=== PATIENT | female | born 1950 | race Caucasian/White ===

== ENCOUNTER 2020-02-12 07:52 | Outpatient (REF) | payer MEDICARE, SELFPAY ==
[2020-02-12 11:56] LABS: Vitamin D 25-OH Total 54.8 ng/mL (>30)
[2020-02-12 11:58] LABS: Alanine Aminotransferase 26 U/L (0-31); Anion Gap 12 (12-20); Aspartate Amino Transferase 22 U/L (5-31); Blood Urea Nitrogen 20 mg/dL (9-16); Calcium 9.2 mg/dL (8.4-10.2); Carbon Dioxide 36 mmol/L (22-29); Chloride 99 mmol/L (96-108); Cholesterol 217 mg/dL; Estimated Glomerular Filt Rate > 60; Glucose Fasting 93 mg/dL (60-99); Potassium 3.5 mmol/l (3.3-5.1); Sodium 143 mmol/L (135-145); Triglycerides 106 mg/dL
[2020-02-12 12:13] LABS: HDL Cholesterol 81 mg/dL; LDL Cholesterol Calculated 115 mg/dl
== END 2020-02-12 07:53 | disposition home or self-care (01) ==
LOC: HO.HMGCLDS 07:52
PROVIDERS: PCP Internal Medicine; Visit Provider Internal Medicine
DX: M81.0 Age-related osteoporosis without current pathological fracture (principal); Z78.0 Asymptomatic menopausal state; I10 Essential (primary) hypertension; N20.0 Calculus of kidney
CPT/HCPCS: 80048; 80061; 82306; 84450; 84460

== ENCOUNTER 2020-05-04 11:19 | Outpatient (REF) | payer MEDICARE, SELFPAY ==
--- NOTE | ~2020-05-04 | US_ITS ---
EXAMINATION: US RETROPERITONEAL COMPLETE (RENAL) CLINICAL INFORMATION: Renal calculus. COMPARISON: Ultrasound kidneys and bladder 03/25/2019 and 11/14/2017. CT abdomen and pelvis 01/27/2017. KUB 10/28/2014 and 02/06/2012. TECHNIQUE: Real-time imaging of the kidneys and bladder. FINDINGS: RIGHT KIDNEY: 11.3 x 5.6 x 5.2 cm (SAG x AP x TRV). The kidney is normal in size, contour, and echogenicity. Renal cortical thickness is normal. No renal calculi or hydronephrosis. There is an anechoic cyst midpole with septation measuring 4.5 x 3.2 x 3.9 cm. LEFT KIDNEY: 12.3 x 5.4 x 4.6 cm (SAG x AP x TRV). The kidney is normal in size, contour, and echogenicity. Renal cortical thickness is normal. No hydronephrosis. There is an anechoic cyst in the lower pole measuring 1.6 x 1.1 x 1.4 cm. There is an echogenic shadowing stone in the lower pole measuring 0.6 x 0.2 cm. BLADDER: Well distended and normal. Bilateral ureteral jets are demonstrated. Prevoid bladder volume is 439 mL. Postvoid bladder volume is 101 mL. US/US retroperitoneal comp IMPRESSION: There are bilateral renal cysts. The cyst in the right kidney is complex measuring 4.5 cm. Nonobstructive echogenic stone lower pole left kidney.
== END 2020-05-04 11:20 | disposition home or self-care (01) ==
LOC: HO.US 11:19
PROVIDERS: Visit Provider Urology
DX: N20.0 Calculus of kidney (principal)
CPT/HCPCS: 76770

== ENCOUNTER 2020-05-21 11:38 | Outpatient (REF) | payer MEDICARE, SELFPAY ==
[2020-05-21 14:21] LABS: SARS COV2 PCR INHOUSE NEGATIVE (Negative)
== END 2020-05-21 11:39 | disposition home or self-care (01) ==
LOC: HO.LAB 11:38
PROVIDERS: Visit Provider Internal Medicine
DX: Z20.822 Contact with and (suspected) exposure to COVID-19 (principal)
CPT/HCPCS: C9803; U0003

== ENCOUNTER 2020-06-24 16:15 | Emergency (ER) | payer MEDICARE, SELFPAY ==
[2020-06-24 17:28] VITALS: BP 138/63; PULSE 79; RESP 16; TEMP 36.8; O2SAT 98; BMI 24.1
--- NOTE | 2020-06-24 19:06 | ED.GIBLEED ---
HPI - GI Bleed General Chief complaint: GI Bleed Stated complaint: RECTAL BLEEDING Time Seen by Provider: 06/24/20 19:06 Source: patient Mode of arrival: ambulatory Limitations: no limitations History of Present Illness HPI Narrative: Patient history of internal hemorrhoids was feeling okay earlier all of a sudden noticed cramping pain in the lower abdomen went to the bathroom and moved bowel when she moved the bowel noticed gush of blood bright red from the rectum also complaining of lower abdominal pain patient has history of precancerous adenomatous polyps which were removed last colonoscopy was 5 years ago no history of bleeding in the past MD complaint: gross hematochezia Related Data Home Medications Medication Instructions Recorded Confirmed flu vacc 2020-21(65yr ml IM 02/07/20 02/07/20 up)-MF59C(PF) 60 mcg(15 mcgx4)/0.5 mL IM syringe pneumoc 13-desi conj-dip cr(PF) 0.5 ml IM 02/07/20 02/07/20 mL IM syringe Previous Rx's Medication Instructions Recorded hydrochlorothiazide 12.5 mg capsule 12.5 mg PO QAM #90 cap 02/06/20 Allergies Allergy/AdvReac Type Severity Reaction Status Date / Time azithromycin Allergy Intermediate GI UPSET, Unverified 11/07/19 15:48 [From ZITHROMAX Z-CHRISTI] stomach upset alendronate sodium [Fosamax] AdvReac Unknown nausea Verified 02/07/19 00:00 Review of Systems Review of Systems: Constitutional : No Weight loss, No Fever, No Chills ENT/Mouth : No sore throat, No Rhinorrhea Eyes: No Eye Pain, No Swelling Cardiovascular : No Chest Pain, no palpitations Respiratory : No Cough, No Sputum, no shortness of breath Gastrointestinal : no Nausea, No Vomiting, No Diarrhea, +abdominal Pain, no black stools Genitourinary : No Dysuria, No Urinary Frequency Musculoskeletal : No joint pain, No Myalgias, No Joint Swelling Skin : No Skin Lesions, No rash Neuro : No Weakness, No Numbness, No Dizziness, No Headache Psych : No Anxiety/Panic, No Depression Heme/Lymph: No Bruising, No Lymphadenopathy Endocrine : No Polyuria, No Polydipsia All other systems reviewed and are negative PMFSH Past Medical History Medical History Menopause Nephrolithiasis Osteoporosis of multiple sites Renal leak of calcium Surgical History Hx of colonoscopy Hx of dilation and curettage Family History Family History Father No problems noted. Mother No problems noted. Sister HX: breast cancer Maternal Grandmother No problems noted. Maternal Grandfather No problems noted. Paternal Grandmother No problems noted. Paternal Grandfather No problems noted. Maternal Uncle No problems noted. Paternal Uncle No problems noted. Social History Social History Alcohol intake: current Smoking Status: Never smoker Advance Directives: No Advance Directives Information Provided: Yes Physical Exam Vital Signs: Vital Signs: Last Vital Signs Temp 98.2 F 06/24/20 17:28 Pulse 105 H 06/24/20 20:51 Resp 16 06/24/20 19:52 BP 152/69 H 06/24/20 20:51 Pulse Ox 96 06/24/20 19:52 Body Mass Index 24.1 Appearance: Alert. Oriented X3. No acute distress. Eyes: PERRLA, No Nystagmus ENT: Pharynx normal. Oral Mucosa moist Neck: Normal inspection. Neck supple. CVS: Normal heart rate and rhythm. Pulses normal. Respiratory: No respiratory distress. Equal air entry bilateral, no wheezing/rales/rhonchi Abdomen: Soft and nontender. Bowel sounds are present, no mass palpable, no CVA tenderness Rectal: Small amount of maroon-colored blood on the finger Skin: Skin warm and dry. Normal skin color. Normal skin turgor. Extremities: No lower extremity edema. No calf tenderness Neuro: Oriented X 3. No motor deficit. No sensory deficit.No cerebellar signs , cranial nerves II-XII intact MDM - GI Bleed MDM Narrative Medical decision making narrative: Patient with minor lower GI bleed no more bleeding in the ER orthostatics normal last colonoscopy normal except for precancer polyps which were removed. Case discussed Dr. Ignacio patient with stable H&H will discharge patient home for now advised to follow with sales office assistant for near future colonoscopy patient labs showed potassium of 3 etiology not very clear will give p.o. potassium Differential Diagnosis Differential diagnosis: Likely hematochezia Lab Data Attestation: I reviewed the patient's lab results. Result diagrams: 06/24/20 19:52 06/24/20 19:52 Labs: Lab Results 06/24/20 06/24/20 06/24/20 Range/Units 19:52 19:52 19:52 WBC 10.6 (4.8-10.8) X10*3/uL RBC 4.77 (4.20-5.50) X10*6/uL Hgb 15.3 (12.0-16.0) g/dl Hct 43.4 (37-47) % MCV 91.0 (80-98) fL MCH 32.1 (27.0-33.0) pg MCHC 35.3 H (31.0-35.0) g/dl RDW 12.4 (11.0-16.0) % Plt Count 254 (160-400) X10*3/uL MPV 10.1 (9.4-12.3) fL Immature Gran % (Auto) 0.3 (0.0-0.4) % Neut % (Auto) 82.7 H (45-73) % Lymph % (Auto) 11.3 L (20-40) % Citrus % (Auto) 5.2 (2-11) % Eos % (Auto) 0.1 (0-4) % Baso % (Auto) 0.4 (0-2) % Lymph # (Auto) 1.2 (1.2-4.9) X10*3/uL Citrus # (Auto) 0.6 (0.1-1.2) X10*3/uL Eos # (Auto) 0.0 (0.0-0.4) X10*3/uL Baso # (Auto) 0.0 (0.0-0.2) X10*3/uL Abs Immat Gran (auto) 0.03 (0.00-0.03) X10*3/uL Absolute Neuts (auto) 8.8 H (2.0-8.3) X10*3/uL Absolute Nucleated RBC 0.000 (0.0-0.012) X10*3/uL Nucleated RBC % (auto) 0.0 (0.0-0.2) /100WBC PT 11.5 (10.8-13.0) SEC INR 1.0 (0.9-1.1) APTT 36.6 (24.1-38.0) SEC Sodium 141 (135-145) mmol/L Potassium 3.0 L (3.3-5.1) mmol/L Chloride 97 (96-108) mmol/L Carbon Dioxide 36 H (22-29) mmol/L Anion Gap 11 L (12-20) BUN 23 H (9-16) mg/dL Creatinine 0.67 (0.5-1.4) mg/dL Estim Creat Clear Calc 64.0 Estimated GFR > 60 Random Glucose 112 (60-115) mg/dL Calcium 9.7 (8.4-10.2) mg/dL Total Bilirubin 0.6 (0.0-1.0) mg/dL Direct Bilirubin 0.2 (0.0-0.5) mg/dL AST 21 (5-31) U/L ALT 27 (0-31) U/L Alkaline Phosphatase 115 (39-117) U/L Total Protein 6.5 (6.5-8.0) g/dL Albumin 4.1 (3.5-5.0) g/dL Lipase 7 L (8-78) U/L Stool Occult Blood (NEGATIVE) Blood Type Antibody Screen 06/24/20 06/24/20 Range/Units 19:54 20:35 WBC (4.8-10.8) X10*3/uL RBC (4.20-5.50) X10*6/uL Hgb (12.0-16.0) g/dl Hct (37-47) % MCV (80-98) fL MCH (27.0-33.0) pg MCHC (31.0-35.0) g/dl RDW (11.0-16.0) % Plt Count (160-400) X10*3/uL MPV (9.4-12.3) fL Immature Gran % (Auto) (0.0-0.4) % Neut % (Auto) (45-73) % Lymph % (Auto) (20-40) % Citrus % (Auto) (2-11) % Eos % (Auto) (0-4) % Baso % (Auto) (0-2) % Lymph # (Auto) (1.2-4.9) X10*3/uL Citrus # (Auto) (0.1-1.2) X10*3/uL Eos # (Auto) (0.0-0.4) X10*3/uL Baso # (Auto) (0.0-0.2) X10*3/uL Abs Immat Gran (auto) (0.00-0.03) X10*3/uL Absolute Neuts (auto) (2.0-8.3) X10*3/uL Absolute Nucleated RBC (0.0-0.012) X10*3/uL Nucleated RBC % (auto) (0.0-0.2) /100WBC PT (10.8-13.0) SEC INR (0.9-1.1) APTT (24.1-38.0) SEC Sodium (135-145) mmol/L Potassium (3.3-5.1) mmol/L Chloride (96-108) mmol/L Carbon Dioxide (22-29) mmol/L Anion Gap (12-20) BUN (9-16) mg/dL Creatinine (0.5-1.4) mg/dL Estim Creat Clear Calc Estimated GFR Random Glucose (60-115) mg/dL Calcium (8.4-10.2) mg/dL Total Bilirubin (0.0-1.0) mg/dL Direct Bilirubin (0.0-0.5) mg/dL AST (5-31) U/L ALT (0-31) U/L Alkaline Phosphatase (39-117) U/L Total Protein (6.5-8.0) g/dL Albumin (3.5-5.0) g/dL Lipase (8-78) U/L Stool Occult Blood POSITIVE (NEGATIVE) Blood Type O Positive Antibody Screen NEGATIVE Discharge Plan Discharge Clinical Impression: Lower gastrointestinal hemorrhage, Acute hypokalemia Patient Disposition: Home, Self-Care Instructions: Rectal Bleeding (ED) Additional Instructions: Report to the ER/sales office assistant if bleeding continues, avoid constipation Follow-up with sales office assistant for re-evaluation in next 2 3 days Prescriptions: No Action hydrochlorothiazide 12.5 mg capsule 12.5 mg PO QAM Qty: 90 RF: 1 Fluad Quad 2020-(65y up)(PF) 60 mcg (15 mcg x 4)/0.5 mL syringe IM RF: 0 Prevnar 13 (PF) 0.5 mL syringe IM RF: 0 Referrals: Prasanth Ignacio [Physician] - 1 week Interventions: ED Discharge Assessment Last Done: 06/24/20 21:29 Discharge Date/Time: 06/24/20 21:31
[2020-06-24 19:52] VITALS: BP 152/64; PULSE 89; RESP 16; O2SAT 96
[2020-06-24 20:01] LABS: MANUAL DIFF FLAG NO
[2020-06-24 20:03] LABS: Basophils Percent Auto 0.4 % (0-2); Eosinophils Percent Auto 0.1 % (0-4); Hematocrit 43.4 % (37-47); Hemoglobin 15.3 g/dl (12.0-16.0); Imm Gran Abs Auto 0.03 X10*3/uL (0.00-0.03); Imm Gran Pct Auto 0.3 % (0.0-0.4); Lymphocytes Absolute Auto 1.2 X10*3/uL (1.2-4.9); Lymphocytes Percent Auto 11.3 % (20-40); Mean Corpuscular HGB Conc 35.3 g/dl (31.0-35.0); Mean Corpuscular Hemoglobin 32.1 pg (27.0-33.0); Mean Platelet Volume 10.1 fL (9.4-12.3); Monocytes Absolute Auto 0.6 X10*3/uL (0.1-1.2); Monocytes Percent Auto 5.2 % (2-11); Neutrophils Absolute Auto 8.8 X10*3/uL (2.0-8.3); Neutrophils Percent Auto 82.7 % (45-73); Platelet Count 254 X10*3/uL (160-400); Red Blood Count 4.77 X10*6/uL (4.20-5.50); Red Cell Distribution Width 12.4 % (11.0-16.0); White Blood Count 10.6 X10*3/uL (4.8-10.8)
[2020-06-24 20:14] LABS: Prothrombin Time 11.5 SEC (10.8-13.0)
[2020-06-24 20:16] LABS: Partial Thromboplastin Time 36.6 SEC (24.1-38.0)
[2020-06-24 20:25] LABS: Alanine Aminotransferase 27 U/L (0-31); Albumin Level 4.1 g/dL (3.5-5.0); Alkaline Phosphatase 115 U/L (39-117); Anion Gap 11 (12-20); Aspartate Amino Transferase 21 U/L (5-31); Bilirubin Direct 0.2 mg/dL (0.0-0.5); Bilirubin Total 0.6 mg/dL (0.0-1.0); Blood Urea Nitrogen 23 mg/dL (9-16); Calcium 9.7 mg/dL (8.4-10.2); Carbon Dioxide 36 mmol/L (22-29); Chloride 97 mmol/L (96-108); Estimated Glomerular Filt Rate > 60; Glucose Random 112 mg/dL (60-115); Lipase 7 U/L (8-78); Sodium 141 mmol/L (135-145); Total Protein 6.5 g/dL (6.5-8.0)
[2020-06-24 20:47] LABS: OBS Int Ctl Valid YES; OBS1 POSITIVE (NEGATIVE)
[2020-06-24 20:49] VITALS: BP 164/65; PULSE 94
[2020-06-24 20:51] VITALS: BP 129/76; BP 152/69; PULSE 103; PULSE 105
[2020-06-24] MEDS: Potassium Bicarbonate/Cit AC 25 MEQ TABLET.EFF PO (21:00)
== END 2020-06-24 21:31 | disposition home or self-care (01) ==
PROVIDERS: Emergency Provider Internal Medicine; PCP Internal Medicine
DX: K92.2 Gastrointestinal hemorrhage, unspecified (principal); E87.6 Hypokalemia; Z79.899 Other long term (current) drug therapy
CPT/HCPCS: 36415; 80048; 80076; 82272; 83690; 85025; 85610; 85730; 86850; 86900; 86901; 99284

== ENCOUNTER 2020-06-29 09:26 | Day surgery (SDC) | payer MEDICARE, SELFPAY ==
--- NOTE | 2020-06-26 08:27 | HO.ANESPROP2 ---
Documented by User: Maggie Sullivanney 06/26/20 08:36 HPI - Anesthesia Eval Consult details Narrative: 70yo F for Colonoscopy Low K in ED 06/24/20. PO K given. Redraw labs DOS. PMFSH Active Problems Active Problems: All Active Problems (Updated 06/25/20 @ 09:37 by Alee Olivia, RN) Rectal hemorrhage (Acute) Renal leak of calcium (Acute) Menopause (Acute) Encounter for general adult medical examination with abnormal findings (Acute) Nephrolithiasis (Acute) Osteoporosis of multiple sites (Acute) Past Medical History Medical History Menopause Nephrolithiasis Osteoporosis of multiple sites Renal leak of calcium Family History Family History Father No problems noted. Mother No problems noted. Sister HX: breast cancer Maternal Grandmother No problems noted. Maternal Grandfather No problems noted. Paternal Grandmother No problems noted. Paternal Grandfather No problems noted. Maternal Uncle No problems noted. Paternal Uncle No problems noted. Surgical History Surgical History Hx of colonoscopy Hx of dilation and curettage Social History Social History Alcohol intake: current Alcohol intake frequency: holidays/special occasions only Smoking Status: Never smoker Second Hand Smoke Exposure: Yes Use of substances other than those prescribed or required for medical reasons: No Are you DNR?: No Advance Directives: No Advance Directives Information Provided: Yes Patient : No Meds Allergies Allergy/AdvReac Type Severity Reaction Status Date / Time azithromycin Allergy Intermediate GI UPSET, Unverified 11/07/19 15:48 [From ZITHROMAX Z-CHRISTI] stomach upset alendronate sodium [Fosamax] AdvReac Unknown nausea Verified 02/07/19 00:00 Home Medications Medication Instructions Recorded Confirmed Last Taken Type flu vacc (65yr ml IM 02/07/20 02/07/20 Unknown History up)-MF59C(PF) 60 mcg(15 mcgx4)/0.5 mL IM syringe pneumoc 13-desi conj-dip cr(PF) 0.5 ml IM 02/07/20 02/07/20 Unknown History mL IM syringe Exam Exam Date and Time: June 26, 2020 0803 Pertinent Lab Results Pertinent Lab Results: Laboratory Tests 06/24/20 19:52 WBC 10.6 Hgb 15.3 Hct 43.4 Plt Count 254 Assessment and Plan Assessment Anesthesia Assessment: Chart Reviewed Documented by User: Sofia Truong 06/29/20 10:16 PMFSH Past Medical History Medical History Menopause Nephrolithiasis Osteoporosis of multiple sites Renal leak of calcium Family History Family History Father No problems noted. Mother No problems noted. Sister HX: breast cancer Maternal Grandmother No problems noted. Maternal Grandfather No problems noted. Paternal Grandmother No problems noted. Paternal Grandfather No problems noted. Maternal Uncle No problems noted. Paternal Uncle No problems noted. Surgical History Surgical History Hx of colonoscopy Hx of dilation and curettage Social History Social History Alcohol intake: current Alcohol intake frequency: holidays/special occasions only Smoking Status: Never smoker Second Hand Smoke Exposure: Yes Use of substances other than those prescribed or required for medical reasons: No Are you DNR?: No Advance Directives: No Advance Directives Information Provided: Yes Patient : No Meds Allergies Allergy/AdvReac Type Severity Reaction Status Date / Time azithromycin Allergy Intermediate GI UPSET, Unverified 11/07/19 15:48 [From ZITHROMAX Z-CHRISTI] stomach upset alendronate sodium [Fosamax] AdvReac Unknown nausea Verified 02/07/19 00:00 Home Medications Medication Instructions Recorded Confirmed Last Taken Type flu vacc (65yr ml IM 02/07/20 02/07/20 Unknown History up)-MF59C(PF) 60 mcg(15 mcgx4)/0.5 mL IM syringe pneumoc 13-desi conj-dip cr(PF) 0.5 ml IM 02/07/20 02/07/20 Unknown History mL IM syringe Exam Airway Mallampati Class: II TM Dist: >3cm Neck ROM: Full Loose/Missing/Broken Teeth: No Heart: RRR Lungs: CTA Assessment and Plan Assessment Anesthesia Assessment: Anesthesia Plan Discussed and Chart Reviewed Final Anesthetic Review NPO: Yes ASA Class: II Final Preanesthetic Review: Meds/Allgs Chart Reviewed, Consent Obtained/Reviewed and Anes Risks/Benef Reviewed Patient Risk: Low Procedure Risk: Low Anesthetic Plan Anesthetic Plan: MAC: Disposition: Standard PACU
[2020-06-29 09:57] VITALS: BMI 23.3
[2020-06-29 10:04] VITALS: BP 152/67; PULSE 90; RESP 16; TEMP 36.4; O2SAT 96
[2020-06-29 10:33] LABS: Anion Gap 13 (12-20); Carbon Dioxide 34 mmol/L (22-29); Chloride 102 mmol/L (96-108); Potassium 3.5 mmol/L (3.3-5.1); Sodium 145 mmol/L (135-145)
[2020-06-29 11:05] VITALS: BP 117/53; PULSE 83; RESP 18; TEMP 36.5; O2SAT 100
--- NOTE | 2020-06-29 11:09 | PM.OP ---
Brief Operative Note Date of Service: 06/29/20 Pre-op diagnosis: Rectal bleed, History of tubular adenomas Post-op diagnosis: other (Colon polyp, ? Resolving colitis, Diverticulosis) Procedure: Colonoscopy to the cecum and TI with biopsies, and biopsy/removal of polyp Surgeon: Prasanth Ignacio Anesthesia: MAC Was an Clinical Assoc used for this Procedure?: No Estimated blood loss (mL): 3.0 Pathology: other (A. Ascending colon polyp B. Colon at 50cm) Condition: stable Disposition: PACU
[2020-06-29 11:20] VITALS: BP 145/67; PULSE 75; RESP 18; TEMP 36.7; O2SAT 100
[2020-06-29 11:35] VITALS: BP 138/63; PULSE 75; RESP 20; O2SAT 100
--- NOTE | 2020-06-29 13:25 | OP_ITS ---
SURGEON: Prasanth Ignacio MD INDICATIONS: The patient presents for evaluation of hematochezia and personal history of tubular adenoma of the colon. Full consent has been obtained from her for this, including risks of bleeding and perforation. PREOPERATIVE DIAGNOSIS: POSTOPERATIVE DIAGNOSIS: PROCEDURE PERFORMED: Colonoscopy to cecum and terminal ileum with biopsies, and biopsy and removal of polyp. ESTIMATED BLOOD LOSS: COMPLICATIONS: ANESTHESIA: Monitored anesthesia care. ASSISTANTS: SPECIMENS: PREOPERATIVE DIAGNOSES: Hematochezia, personal history of tubular adenoma of the colon, family history of colon cancer. POSTOPERATIVE DIAGNOSES: Hematochezia, personal history of tubular adenoma of the colon, family history of colon cancer, small colon polyp, question of resolving colitis, diverticulosis, and internal hemorrhoids. DESCRIPTION OF PROCEDURE: The patient was placed in the left lateral decubitus position. The digital rectal exam revealed no abnormalities. The [employer] video pediatric colonoscope was entered into the rectum and advanced easily to the cecum. Once in the cecum, I did identify normal-appearing cecal pouch with appendiceal orifice and a normal-appearing ileocecal valve. The terminal ileum was cannulated and appeared normal. The scope was withdrawn back in the colon. The entire cecum and ileocecal valve appeared normal. The scope was slowly withdrawn assessing all mucosal surfaces carefully. Preparation was excellent. In the ascending colon, was a flat approximately 5 mm polyp, which was biopsied and completely removed with cold biopsy forceps. I did not visualize any sign of other polyps nor angiodysplasia. Between 50 and 60 cm, was what appeared to be an area of some resolving colitis with some erythema, edema, and some mild friability. There were no erosions or ulceration. Biopsies were obtained. There was a moderate amount of sigmoid diverticulosis. I did not visualize any sign of other areas of colitis. In the rectum, scope was retroflexed visualizing internal hemorrhoids, but no other pathology. The rectal mucosa appeared normal. The scope was straightened out and withdrawn from the patient. She tolerated the procedure well and was returned to the recovery area in stable condition. IMPRESSION: 1. Small colon polyp, status post biopsy and removal. 2. Question of resolving colitis. 3. Diverticulosis. 4. Internal hemorrhoids. PLAN: The results of the biopsy will be checked. I would recommend a repeat colonoscopy in 5 years for further screening given the previous history of tubular adenomas. In regard to the recent bleeding, this seems to have subsided as she has had no further bleeding including with her bowel prep last night. Even if the biopsies do show some resolving colitis, I would not treat that and this may very well have represented a transient episode of ischemic colitis given the location and her initial presentation. She was advised not to use any aspirin and NSAIDs for 1 week. MD PABLO Patel/PROSPER / [phone]
== END 2020-06-29 12:04 | disposition home or self-care (01) ==
PROVIDERS: Anesthesiology; PCP Internal Medicine; Visit Provider Internal Medicine
PROC: 0DJD8ZZ Inspection of Lower Intestinal Tract, Via Natural or Artificial Opening Endoscopic (ICD-10-PCS; CPT 45378; principal; 2020-06-29 10:30)
DX: K62.5 Hemorrhage of anus and rectum (principal); Z86.010 Personal history of colon polyps; Z80.0 Family history of malignant neoplasm of digestive organs; D12.2 Benign neoplasm of ascending colon; K57.30 Diverticulosis of large intestine without perforation or abscess without bleeding; K64.8 Other hemorrhoids; M81.0 Age-related osteoporosis without current pathological fracture; Z87.442 Personal history of urinary calculi; Z79.899 Other long term (current) drug therapy; Z88.1 Allergy status to other antibiotic agents; Z88.8 Allergy status to other drugs, medicaments and biological substances
CPT/HCPCS: 45380; 36415; 80051; 88305

== ENCOUNTER 2020-09-30 09:01 | Outpatient (REF) | payer MEDICARE, SELFPAY ==
--- NOTE | ~2020-09-30 | MM_ITS ---
EXAMINATION: MM SCREENING DIGITAL BREAST TOMOSYNTHESIS, BILATERAL CLINICAL INFORMATION: Screening. Asymptomatic. The lifetime risk of breast cancer based on the Tyrer-Cuzick Model is 6.4%. COMPARISON: Mammography: August 14, 2019 and studies dating back to February 26, 2013. TECHNIQUE: Digital breast tomosynthesis is performed in both the craniocaudal and mediolateral oblique views along with computer-aided detection (CAD). Synthesized 2D images are generated from the tomosynthesis. Additional left exaggerated craniocaudal view performed. FINDINGS: The breasts are heterogeneously dense, which may obscure small masses (ACR BI-RADS breast composition Category c). There are no significant masses, abnormal calcifications, or other abnormalities. MM/MM tomosynthesis screening BI IMPRESSION: There are no significant changes from prior study. ASSESSMENT: BI-RADS 1: Negative RECOMMENDATION: Routine annual mammography screening. This patient's information was entered into a reminder system with a target due date for their next mammogram.
--- NOTE | ~2020-09-30 | MM_ITS ---
EXAMINATION: BONE DENSITOMETRY CLINICAL INDICATION: Age-related osteoporosis without current pathological fracture. COMPARISON: Previous BD dated 02/23/2018 and baseline BD dated 06/06/2007. TECHNIQUE: Using a [employer] DXA System (software version: 13.1) manufactured by [employer], dual-energy x-ray absorptiometry was performed of the spine and left hip. The images are of good technical quality. Summary results are attached. FINDINGS: AP SPINE L1-L4: Current: BMD 0.941 g/cm2, Z-score -0.1, T-score -2.0, osteopenia, 1.8% increase from previous, 8.1% decrease from baseline (<5% change is not significant). Prior: BMD 0.924 g/cm2. Baseline: BMD 1.024 g/cm2. LEFT FEMUR, NECK: Current: BMD 0.715 g/cm2, Z-score -0.5, T-score -2.3, osteopenia. Prior: BMD 0.681 g/cm2. Baseline: BMD 0.718 g/cm2. LEFT FEMUR, TOTAL: Current: BMD 0.792 g/cm2, Z-score -0.1, T-score -1.7, osteopenia, 1.9% increase from previous, 2.7% decrease from baseline (<5% change is not significant). Prior: BMD 0.777 g/cm2. Baseline: BMD 0.814 g/cm2. IDENTIFIED RISK FACTORS: Osteoporosis, height loss, thiazide, menopause. HISTORY OF FRACTURE: None listed. MEDICATIONS: Vitamin D. MM/XR DEXA axial skeleton IMPRESSION: 1. DIAGNOSIS: Osteopenia based on the lowest T-score value of -2.3 in the femoral neck applying World Health Organization criteria. 2. 10-YEAR FRACTURE RISK PREDICTION, FRAX: Major osteoporotic fracture (clinical spine, forearm, hip or shoulder) 13.7%. Hip fracture 3.3%. 3. Treatment Recommendations: NOF guidelines recommend consideration for treatment in postmenopausal women and men age 50 and older presenting with the following: -A hip or vertebral (clinical or morphometric) fracture. -T-score less than or equal to -2.5 at the femoral neck or spine after appropriate evaluation to exclude secondary causes. -Low bone mass at the hip or spine and a 10-year fracture probability by FRAX of greater than or equal to 3% for hip fracture or greater than or equal to 20% for major osteoporotic fracture based on the [place] adapted WHO algorithm. 4. Other Recommendations: All treatment decisions require clinical judgment and consideration of individual patient factors, including patient preferences, comorbidities, previous drug use, risk factors not captured in the FRAX model (e.g. frailty, falls, vitamin D deficiency, increased bone turnover, interval significant decline in bone density) and possible under or overestimation of fracture risk by FRAX. Additional medical evaluation for secondary cause of low bone mineral density may be appropriate. FUTURE SCAN RECOMMENDATION: People with diagnosed cases of osteoporosis or at high risk for fracture should have regular bone mineral density tests. For patients eligible for Medicare, routine testing is allowed once every 2 years. The testing frequency can be increased to one year for patients who have rapidly progressing disease, those who are receiving or discontinuing medical therapy to restore bone mass, or have additional risk factors.
== END 2020-09-30 09:02 | disposition home or self-care (01) ==
LOC: HO.MAMMO 09:01
PROVIDERS: Visit Provider Internal Medicine
DX: M81.8 Other osteoporosis without current pathological fracture (principal); Z78.0 Asymptomatic menopausal state; Z12.31 Encounter for screening mammogram for malignant neoplasm of breast
CPT/HCPCS: 77063; 77067; 77080

== ENCOUNTER 2021-02-15 08:02 | Outpatient (REF) | payer MEDICARE, SELFPAY ==
[2021-02-15 12:00] LABS: Alanine Aminotransferase 32 U/L (0-31); Anion Gap 12 (12-20); Aspartate Amino Transferase 23 U/L (5-31); Blood Urea Nitrogen 25 mg/dL (9-16); Calcium 9.3 mg/dL (8.4-10.2); Carbon Dioxide 31 mmol/L (22-29); Chloride 105 mmol/L (96-108); Cholesterol 203 mg/dL; Estimated Glomerular Filt Rate > 60; Glucose Fasting 92 mg/dL (60-99); HDL Cholesterol 77 mg/dL; LDL Cholesterol Calculated 110 mg/dl; Sodium 144 mmol/L (135-145); Triglycerides 82 mg/dL
[2021-02-15 12:08] LABS: Vitamin D 25-OH Total 42.7 ng/mL (>30)
== END 2021-02-15 08:03 | disposition home or self-care (01) ==
LOC: HO.HMGCLDS 08:02
PROVIDERS: PCP Internal Medicine; Visit Provider Internal Medicine
DX: Z00.01 Encounter for general adult medical examination with abnormal findings (principal); M85.89 Other specified disorders of bone density and structure, multiple sites; N20.0 Calculus of kidney; Z78.0 Asymptomatic menopausal state
CPT/HCPCS: 36415; 80048; 80061; 82306; 84450; 84460

== ENCOUNTER 2021-05-12 12:48 | Outpatient (REF) | payer MEDICARE, SELFPAY ==
--- NOTE | ~2021-05-12 | US_ITS ---
EXAMINATION: US RETROPERITONEAL COMPLETE (RENAL) CLINICAL INFORMATION: Cyst of kidney. COMPARISON: Ultrasound kidneys and bladder 05/04/2020 and 03/25/2019. CT abdomen and pelvis 01/27/2017. X-ray abdomen KUB 10/28/2014. TECHNIQUE: Real-time imaging of the kidneys and bladder. FINDINGS: RIGHT KIDNEY: 10.9 x 3.9 x 4.6 cm (SAG x AP x TRV). The kidney is normal in size, contour, and echogenicity. Renal cortical thickness is normal. No renal calculi or hydronephrosis. There is an anechoic cyst in the midpole with septations measuring 4.1 x 3.5 x 4.1 cm. LEFT KIDNEY: 12.4 x 4.9 x 5.0 cm (SAG x AP x TRV). The kidney is normal in size, contour, and echogenicity. Renal cortical thickness is normal. No hydronephrosis. There is an anechoic cyst measuring 1.0 x 0.75 x 1.1 cm in the lower pole. There is an echogenic stone in the lower pole measuring 0.43 x 0.24 x 0.39 cm. BLADDER: Well distended and normal. Bilateral ureteral jets are demonstrated. Prevoid bladder volume is 432 mL. Postvoid bladder volume is 28.9 mL. US/US retroperitoneal comp IMPRESSION: Complex cyst midpole right kidney. Simple cyst and an echogenic nonobstructive stone lower pole left kidney. There is no hydronephrosis.
== END 2021-05-12 12:49 | disposition home or self-care (01) ==
LOC: HO.US 12:48
PROVIDERS: Visit Provider Nurse Practitioner Family
DX: N28.1 Cyst of kidney, acquired (principal)
CPT/HCPCS: 76770

== ENCOUNTER 2021-10-04 09:03 | Outpatient (REF) | payer MEDICARE, SELFPAY ==
--- NOTE | ~2021-10-04 | MM_ITS ---
EXAMINATION: MM SCREENING DIGITAL BREAST TOMOSYNTHESIS, BILATERAL CLINICAL INFORMATION: Screening. Asymptomatic. The lifetime risk of breast cancer based on the Tyrer-Cuzick Model is 5%. COMPARISON: Mammography: 09/30/2020, 08/14/2019, 06/08/2018, 05/29/2017 TECHNIQUE: Digital breast tomosynthesis is performed in both the craniocaudal and mediolateral oblique views along with computer-aided detection (CAD). Synthesized 2D images are generated from the tomosynthesis. Additional left CC view is provided FINDINGS: The breasts are heterogeneously dense, which may obscure small masses (ACR BI-RADS breast composition Category c). There are no significant masses, abnormal calcifications, or other abnormalities. Parenchymal pattern is similar to prior studies. There is no developing density or architectural abnormality. There is a biopsy clip marker posterior 11:00 right breast. The axilla and skin contours are unremarkable. No significant changes. MM/MM tomosynthesis screening BI IMPRESSION: No mammographic evidence of malignancy. ASSESSMENT: BI-RADS 1: Negative RECOMMENDATION: Routine annual mammography screening. This patient's information was entered into a reminder system with a target due date for their next mammogram.
== END 2021-10-04 09:04 | disposition home or self-care (01) ==
LOC: HO.MAMMO 09:03
PROVIDERS: Visit Provider Internal Medicine
DX: Z12.31 Encounter for screening mammogram for malignant neoplasm of breast (principal)
CPT/HCPCS: 77063; 77067

== ENCOUNTER 2022-02-07 06:49 | Outpatient (REF) | payer MEDICARE, SELFPAY ==
[2022-02-07 12:20] LABS: Alanine Aminotransferase 29 U/L (0-31); Anion Gap 11 (12-20); Aspartate Amino Transferase 23 U/L (5-31); Blood Urea Nitrogen 15 mg/dL (9-16); Calcium 9.3 mg/dL (8.4-10.2); Carbon Dioxide 35 mmol/L (22-29); Chloride 102 mmol/L (96-108); Cholesterol 218 mg/dL; Estimated Glomerular Filt Rate > 60; Glucose Fasting 100 mg/dL (60-99); HDL Cholesterol 75 mg/dL; LDL Cholesterol Calculated 117 mg/dl; Potassium 3.5 mmol/L (3.3-5.1); Sodium 144 mmol/L (135-145); Triglycerides 133 mg/dL; Vitamin D 25-OH Total 46.3 ng/mL (>30)
== END 2022-02-07 06:50 | disposition home or self-care (01) ==
LOC: HO.HMGCLDS 06:49
PROVIDERS: PCP Internal Medicine; Visit Provider Internal Medicine
DX: Z00.01 Encounter for general adult medical examination with abnormal findings (principal); M85.89 Other specified disorders of bone density and structure, multiple sites; Z78.0 Asymptomatic menopausal state
CPT/HCPCS: 36415; 80048; 80061; 82306; 84450; 84460

== ENCOUNTER 2022-04-26 09:49 | Outpatient (REF) | payer MEDICARE, SELFPAY ==
--- NOTE | ~2022-04-26 | US_ITS ---
EXAMINATION: US THYROID CLINICAL INFORMATION: Other specified disorders of thyroid. COMPARISON: Ultrasound thyroid 04/18/2018. TECHNIQUE: Linear transducer grayscale and color Doppler examination with attention to the region of the thyroid. FINDINGS: SIZE: Measurements of the thyroid lobes and nodules are given in sagittal, anteroposterior and transverse dimensions respectively. Right Thyroid Lobe: 3.7 x 1.2 x 1.3 cm, volume 3.1 mL. Previously 4.4 x 0.9 x 1.6 cm, volume 3.2 mL. Parenchyma: The gland echotexture is heterogeneous. Thyroid vascularity is normal. Left Thyroid Lobe: 4.3 x 1.0 x 1.3 cm, volume 2.9 mL. Previously 5.1 x 1.0 x 1.4 cm, volume 3.7 mL. Parenchyma: The gland echotexture is heterogeneous. Thyroid vascularity is normal. Isthmus: 0.2 cm in maximum AP dimension. Previously 0.2 cm. Estimated total number of nodules greater than or equal to 1 cm: 0. Melter Helper nodules are described as follows: 1. Location: Right mid. Size: 0.3 x 0.3 x 0.3 cm, volume 0.01 mL. Previously: 0.4 x 0.2 x 0.3 cm, volume 0.01 mL. Nodule characteristics: Composition: Solid (2). Echogenicity: Isoechoic (1). Shape: Not taller than wide (0). Margins: Smooth (0). Echogenic Foci: None (0). ACR TI-RADS total points: 3 ACR TI-RADS category: 3 Significant change in size (>/= 20% in 2 dimensions and minimal increase of 2 mm or 50% or greater increase in volume): Change in features: Change in ACR TI-RADS risk category: 2. Location: Right mid. Size: 0.2 x 0.3 x 0.2 cm, volume 0.01 mL. Previously: 0.4 x 0.2 x 0.4 cm, volume 0.01 mL. Nodule characteristics: Composition: Solid (2). Echogenicity: Isoechoic (1). Shape: Not taller than wide (0). Margins: Smooth (0). Echogenic Foci: None (0). ACR TI-RADS total points: 3 ACR TI-RADS category: 3 Significant change in size (>/= 20% in 2 dimensions and minimal increase of 2 mm or 50% or greater increase in volume): Change in features: Change in ACR TI-RADS risk category: 3. Location: Left superior/mid. Size: 0.6 x 0.5 x 0.8 cm, volume 0.14 mL. Previously: 0.7 x 0.5 x 0.7 cm, volume 0.13 mL. Nodule characteristics: Composition: Mixed cystic and solid (1). Echogenicity: Isoechoic (1). Shape: Not taller than wide (0). Margins: Lobulated (2). Echogenic Foci: None (0). ACR TI-RADS total points: 4 ACR TI-RADS category: 4 Significant change in size (>/= 20% in 2 dimensions and minimal increase of 2 mm or 50% or greater increase in volume): Change in features: Change in ACR TI-RADS risk category: 4. Location: Left mid. Size: 0.6 x 0.5 x 0.5 cm, volume 0.09 mL. Previously: 0.7 x 0.5 x 0.5 cm, volume 0.09 mL. Nodule characteristics: Composition: Spongiform (0). Echogenicity: Anechoic (0). Shape: Not taller than wide (0). Margins: Smooth (0). Echogenic Foci: None (0). ACR TI-RADS total points: 0 ACR TI-RADS category: 1 Significant change in size (>/= 20% in 2 dimensions and minimal increase of 2 mm or 50% or greater increase in volume): Change in features: Change in ACR TI-RADS risk category: 5. Location: Left inferior. Size: 0.7 x 0.4 x 0.8 cm, volume 0.1 mL. Previously: 0.7 x 0.4 x 0.7 cm, volume 0.1 mL. Nodule characteristics: Composition: Spongiform (0). Echogenicity: Anechoic (0). Shape: Not taller than wide (0). Margins: Smooth (0). Echogenic Foci: None (0). ACR TI-RADS total points: 0 ACR TI-RADS category: 1 Significant change in size (>/= 20% in 2 dimensions and minimal increase of 2 mm or 50% or greater increase in volume): Change in features: Change in ACR TI-RADS risk category: NODES: No lymphadenopathy is seen in the tissue surrounding the thyroid gland. US/US thyroid IMPRESSION: Essentially stable exam. No developing or suspicious nodules. ACR TI-RADS RECOMMENDATION REFERENCE: Ultrasound-guided fine-needle aspiration, followup ultrasound, no further follow up. * TR1 (0 point) and TR2 (2 points): No FNA or follow up. * TR3 (3 points): FNA if more than or equal to 2.5 cm in maximum dimension, followup ultrasound in 1, 3 and 5 years if 1.5 to 2.4 cm in maximum dimension. * TR4 (4-6 points): FNA if more than or equal to 1.5 cm in maximum dimension, followup ultrasound in 1, 2, 3 and 5 years if 1 to 1.4 cm in maximum dimension. * TR5 (more than or equal to 7 points): FNA if more than or equal to 1 cm in maximum dimension, followup ultrasound every year for 5 years if 0.5 to 0.9 cm in maximum dimension. * TR3, TR4 or TR5 nodules that are below the size threshold for followup receive no follow up.
== END 2022-04-26 09:50 | disposition home or self-care (01) ==
LOC: HO.US 09:49
PROVIDERS: PCP Internal Medicine; Visit Provider Internal Medicine
DX: E07.89 Other specified disorders of thyroid (principal); Z83.49 Family history of other endocrine, nutritional and metabolic diseases
CPT/HCPCS: 76536

== ENCOUNTER 2022-06-13 10:24 | Outpatient (REF) | payer MEDICARE, SELFPAY ==
--- NOTE | ~2022-06-13 | US_ITS ---
EXAMINATION: US RETROPERITONEAL LIMITED (RENAL ONLY) CLINICAL INFORMATION: Renal calculus. COMPARISON: Retroperitoneal (renal) ultrasounds dated 05/12/2021 and 05/04/2020. TECHNIQUE: Real-time imaging of the kidneys. FINDINGS: RIGHT KIDNEY: 11.7 x 4.9 x 5.2 cm (SAG x AP x TRV). The kidney is normal in size, contour, and echogenicity. Renal cortical thickness is normal. No renal calculi or hydronephrosis. There is a 4 x 3.4 x 4.6 cm cyst in the upper pole with peripheral septations, previously measuring 4.1 x 3.5 x 4.1 cm on the ultrasound from 05/12/2021 and 4.5 x 3.2 x 3.9 cm on the ultrasound from 05/04/2020. LEFT KIDNEY: 12.8 x 4.6 x 4.7 cm (SAG x AP x TRV). The kidney is normal in size, contour, and echogenicity. Renal cortical thickness is normal. No hydronephrosis. There is a simple cyst in the upper pole measuring 1.5 cm, for which no imaging follow-up is recommended. There is a 0.6 cm nonobstructive calculus in the lower pole. US/US renal BI IMPRESSION: 1. Nonobstructive 0.6 cm calculus in the lower pole of the left kidney. 2. No significant change in a septated cyst in the upper pole of the right kidney compared to 05/12/2021 and 05/04/2020.
== END 2022-06-13 10:25 | disposition home or self-care (01) ==
LOC: HO.US 10:24
PROVIDERS: PCP Internal Medicine; Visit Provider Urology
DX: N20.0 Calculus of kidney (principal)
CPT/HCPCS: 76775

== ENCOUNTER 2022-09-22 10:50 | Outpatient (AMB) | payer MEDICARE, SELFPAY ==
--- NOTE | 2022-09-22 11:06 | A.OFFPC_ITS ---
Vital Signs 09/22/22 11:09 Height 5 ft 1 in Weight 125 lb BMI 23.6 BP 136/80 Blood Pressure Location Rt brachial Position Sitting Pulse 76 Pulse Source Pulse Oximeter Pulse Oximetry (%) 96 Oxygen Delivery Method Room Air Intake Visit Reasons: 6m follow up Intake Note: Pt is here today for her 6 months f/u Allergies azithromycin [From ZITHROMAX Z-CHRISTI] Allergy (Intermediate, Verified 09/22/22 11:43) GI UPSET, stomach upset alendronate sodium [Fosamax] Adverse Reaction (Unknown, Verified 09/22/22 11:43) nausea Medication List - Last Reconciled 09/22/22 by Nancy Calle MD cholecalciferol (vitamin D3) 50 mcg PO DAILY hydrochlorothiazide 12.5 mg PO QAM hyoscyamine sulfate 0.125 - 0.25 mg PO Q4-6H PRN Tobacco use date assessed: 09/22/22 Fall risk assessment: 1 Fall in past year Last assessed Fall Risk: 09/22/22 Dental Screening Dental Screen Date: 09/22/22 Did you have a dental visit in the last 12 months?: Yes Did you have a dental problem in the last 6 months where you did not have access to dental care?: No Was dental information given to patient?: Patient has dentist HPI 6m follow up HPI Details 72-year-old lady, here today for follow-up. She has nephrolithiasis, with small kidney stone seen on ultrasound in left kidney, currently asymptomatic. Takes hydrochlorothiazide for this which has been helping prevent recurrences. She also has in occasional abdominal cramping and bloating, has been prescribed hyoscyamine sulfate to take as needed by Dr. Ignacio, but has not needed to use. She has osteopenia, takes vitamin-D 3 supplements and calcium through dietary sources, is scheduled for another bone density scan later this year. She has been feeling well with no complaints at present time [facility] Medical History Abdominal bloating with cramps Family history of thyroid disease Menopause Nephrolithiasis Osteopenia of multiple sites Palpable thyroid Renal leak of calcium Surgical History Hx of colonoscopy Hx of dilation and curettage Family History Father No problems noted. Mother No problems noted. Sister HX: breast cancer Maternal Grandmother No problems noted. Maternal Grandfather No problems noted. Paternal Grandmother No problems noted. Paternal Grandfather No problems noted. Maternal Uncle No problems noted. Paternal Uncle No problems noted. Social History Housing: House Alcohol intake: current Alcohol intake frequency: holidays/special occasions only Patient Tobacco Use Status: Never used Tobacco e-Cigarette/Vaping Use: Never Used Second Hand Smoke Exposure: Yes Current occupational status: retired Cognitive needs: No Hearing needs: No Vision needs: Yes Questionnaire PHQ-9 Over the last 2 weeks, how often have you been bothered by any of the following problems? Depression Screening Interpretation: Negative Source: Developed by Drs. Prasanth Hunter, Dorota Dumas, Matty Prabhakar and colleagues, with an educational ca from [employer]. Thrive Questionnaire Date Thrive assessed: 09/22/22 I am a: Patient What is your living situation today?: I have a steady place to live Within the past 12 months, did the food you bought not last and you didn't have the money to get more?: Never true Within the past 12 months, did you worry whether your food would run out before you got money to buy more?: Never true Do you have trouble paying for medicines?: No Do you have trouble getting transportation to medical appointments?: No Do you have trouble paying your heating and electricity bill?: No Do you have trouble taking care of your child, family member or friend?: No Do you have trouble with day-to-day activities such as bathing, preparing meals, shopping, managing finances, etc.?: No Are you currently unemployed and looking for a job?: No Are you interested in more education?: No AUDIT C Alcohol Use Questionnaire (AUDIT-C) 1. How often do you have a drink containing alcohol?: Monthly or less 2. How many drinks containing alcohol do you have on a typical day when you are drinking?: 1 or 2 3. How often do you have six or more drinks on one occasion?: Never Total Score: 1 JERI-7 AMB Questionnaire JERI-7 Date JERI - 7 assessed: 03/24/22 Source: Developed by Drs. Prasanth Hunter, Dorota Dumas, Matty Prabhakar and colleagues, with an educational ca from [employer]. Review of Systems Const Denies body aches, Denies fatigue, Denies fever(s), Denies headache(s) and Denies weakness Eyes Denies change in vision, Denies eye discharge and Denies itchy eyes ENT Reports Normal hearing present, Denies dizziness, Denies headache(s), Denies nasal congestion, Denies nasal discharge and Denies sore throat Card Denies chest pain, Denies lightheadedness, Denies palpitations and Denies dyspnea Resp Denies chest congestion, Denies cough, Denies dyspnea and Denies wheezing GI Denies abdominal pain, Denies change in bowel habits and Denies heartburn Denies urinary frequency, Denies dysuria and Denies urinary urgency Musc Reports no additional complaints Skin/Breast Denies breast mass, Denies lesions and Denies rash Neuro Reports Normal hearing present, Denies dizziness, Denies headache(s), Denies Sensory deficit (Neuro) and Denies weakness Psych Reports no additional complaints Endo Denies fatigue, Denies polydipsia, Denies polyuria and Denies palpitations Rudi/Lymph Denies easy bruising Aller/Immun Denies itchy eyes, Denies seasonal rhinorrhea and Denies wheezing Physical exam (Primary Care) Vital Signs: Last Vital Signs Pulse 76 09/22/22 11:09 BP 136/80 09/22/22 11:09 Pulse Ox 96 09/22/22 11:09 Oxygen Delivery Method Room Air 09/22/22 11:09 BMI result Body Mass Index 23.6 Tobacco/Smoking Status: Tobacco use Status Tobacco use date assessed 09/22/22 09/22/22 11:08 Patient Tobacco Use Status Never used Tobacco 09/22/22 11:08 e-Cigarette/Vaping Use Never Used 09/22/22 11:08 Depression Screening Interpretation: Negative Thrive Assessment: Date of Thrive Assessment Date Thrive assessed 03/24/22 09/22/22 11:08 Const General: cooperative, no acute distress and alert Orientation/consciousness: patient oriented x3 HENMT Head: Yes normal to inspection and Yes normocephalic Ears: external ears normal, TM's normal bilaterally and EAC's normal General nose exam: Normal external nose present, Normal nasal mucous membranes and turbinates present and No nasal discharge present Face and sinus: Yes face symmetric Mouth: Normal oral and palatal mucosa present, oropharynx normal and moist mucous membranes Eyes Conjunctivae: conjunctivae normal Sclerae: sclerae normal Pupils: Equal, round and reactive pupils present EOM: EOMs intact bilaterally Neck Neck: Yes full ROM and Yes no lymphadenopathy Carotids: normal carotid upstroke Resp Effort & Inspection: normal respiratory effort and able to speak in complete sentences Auscultation: clear to auscultation bilaterally Cardio Jugular venous distension: no JVD Rate: regular rate Rhythm: regular rhythm Heart sounds: S1 normal heart sound present and S2 normal heart sound present GI Inspection: Yes normal to inspection Palpation (GI): Soft to palpation Auscultation: normal bowel sounds General: Yes no CVA tenderness Back/Spine/Pelvis Other: mild kyphosis Back: no CVA tenderness Skin General skin exam: no rashes or lesions noted Neuro General: patient oriented x3, gait normal, moves all extremities, no focal motor deficits and CN's II-XI intact bilaterally Cranial nerves: Yes Equal, round and reactive pupils present and Yes Normal hearing present Cognition (Neuro): normal cognition Gait exam (Neuro): Normal gait present Motor exam (neuro): 5/5 motor strength present throughout Sensory Exam: No Sensory deficit (Neuro) Extrem General: Yes normal to inspection, Yes full ROM, Yes no pedal edema and Yes normal gait Psych Appearance: grossly normal and well kempt Mental Status: mental status grossly normal Speech and movement: Normal speech and movement present Affect: normal affect Attitude: cooperative Thought process: Normal thought process present Thought content: Normal thought content present Assessment and Plan Assessment & Plan (1) Osteopenia of multiple sites: Code(s): M85.89 - Other specified disorders of bone density and structure, multiple sites Plan: Stressed importance of doing regular weight-bearing exercises, continue taking vitamin-D 3 supplements and dietary calcium, has an appointment for her bone density scan later this year (2) Renal leak of calcium: Code(s): E83.59 - Other disorders of calcium metabolism Plan: Continue hydrochlorothiazide followed by urology (3) Nephrolithiasis: Code(s): N20.0 - Calculus of kidney Plan: Continue with hydrochlorothiazide increase water intake, followed by Urology Code(s): R14.0 - Abdominal distension (gaseous); R10.9 - Unspecified abdominal pain Orders: Orders Basic Metabolic Panel Fasting Today E83.59 - Other disorders of calcium metabolism, M85.89 - Other specified disorders of bone density and structure, multiple sites, N20.0 - Calculus of kidney, R73.01 - Impaired fasting glucose, Z78.0 - Asymptomatic menopausal state Vitamin D 25-OH Total Today E83.59 - Other disorders of calcium metabolism, M85.89 - Other specified disorders of bone density and structure, multiple sites, N20.0 - Calculus of kidney, Z78.0 - Asymptomatic menopausal state Coding Level of Care Code Est Pt Level 3 (64137) Diagnoses Osteopenia of multiple sites M85.89 Renal leak of calcium E83.59 Nephrolithiasis N20.0 Abdominal bloating with cramps R14.0; R10.9
[2022-09-22 11:09] VITALS: BP 136/80; PULSE 76; O2SAT 96; BMI 23.6
== END 2022-09-22 14:08 | disposition home or self-care (01) ==
PROVIDERS: Visit Provider Internal Medicine
DX: M85.89 Other specified disorders of bone density and structure, multiple sites (principal); E83.59 Other disorders of calcium metabolism; N20.0 Calculus of kidney; R14.0 Abdominal distension (gaseous); R10.9 Unspecified abdominal pain
CPT/HCPCS: 99213

== ENCOUNTER 2022-09-30 07:13 | Outpatient (REF) | payer MEDICARE, SELFPAY ==
[2022-09-30 12:17] LABS: Anion Gap 11 (12-20); Blood Urea Nitrogen 19 mg/dL (9-16); Calcium 9.8 mg/dL (8.4-10.2); Carbon Dioxide 33 mmol/L (22-29); Chloride 102 mmol/L (96-108); Estimated Glomerular Filt Rate > 60; Glucose Fasting 95 mg/dL (60-99); Potassium 3.6 mmol/L (3.3-5.1); Sodium 142 mmol/L (135-145)
[2022-09-30 12:36] LABS: Vitamin D 25-OH Total 64.6 ng/mL (>30)
== END 2022-09-30 07:14 | disposition home or self-care (01) ==
LOC: HO.HMGCLDS 07:13
PROVIDERS: PCP Internal Medicine; Visit Provider Internal Medicine
DX: E83.59 Other disorders of calcium metabolism (principal); M85.89 Other specified disorders of bone density and structure, multiple sites; R73.01 Impaired fasting glucose; Z78.0 Asymptomatic menopausal state
CPT/HCPCS: 36415; 80048; 82306

== ENCOUNTER 2022-10-06 09:01 | Outpatient (REF) | payer MEDICARE, SELFPAY ==
--- NOTE | ~2022-10-06 | MM_ITS ---
EXAMINATION: MM SCREENING DIGITAL BREAST TOMOSYNTHESIS, BILATERAL CLINICAL INFORMATION: Screening. Asymptomatic. COMPARISON: Mammography: 10/04/2021, 09/30/2020, 08/14/2019, and dating back to 2013. TECHNIQUE: Digital breast tomosynthesis is performed in both the craniocaudal and mediolateral oblique views along with computer-aided detection (CAD). Synthesized 2D images are generated from the tomosynthesis. FINDINGS: The breasts are heterogeneously dense, which may obscure small masses (ACR BI-RADS breast composition Category c). There are no suspicious masses, suspicious grouped calcifications, or areas of architectural distortion. The parenchymal pattern is stable from prior exams. Post benign biopsy clip seen upper slightly outer right breast posterior one third. MM/MM tomosynthesis screening BI IMPRESSION: No mammographic evidence of malignancy. ASSESSMENT: BI-RADS BI-RADS 2 - Benign Findings RECOMMENDATION: Routine annual mammography screening. 1 year F/U This examination should not preclude the clinical evaluation of a suspicious palpable abnormality. This patient's information was entered into a reminder system with a target due date for their next mammogram.
--- NOTE | ~2022-10-06 | MM_ITS ---
EXAMINATION: BONE DENSITOMETRY CLINICAL INDICATION: Other specified disorders of bone density and structure, multiple sites. COMPARISON: Previous BD dated 09/30/2020 and baseline BD dated 06/06/2007. TECHNIQUE: Using a [employer] DXA System (software version: 13.1) manufactured by [employer], dual-energy x-ray absorptiometry was performed of the lumbar spine and left hip. The images are of good technical quality. Summary results are attached. FINDINGS: LEFT FEMUR, NECK: Current: BMD 0.725 g/cm2, Z-score -0.3, T-score -2.3, osteopenia. Prior: BMD 0.715 g/cm2. Baseline: BMD 0.718 g/cm2. LEFT FEMUR, TOTAL: Current: BMD 0.775 g/cm2, Z-score -0.1, T-score -1.8, osteopenia, 2.1% decrease from previous, 4.8% decrease from baseline (<5% change is not significant). Prior: BMD 0.792 g/cm2. Baseline: BMD 0.814 g/cm2. AP SPINE L1-L4: Current: BMD 0.950 g/cm2, Z-score 0.1, T-score -1.9, osteopenia, 1.0% increase from previous, 7.2% decrease from baseline (<5% change is not significant). Prior: BMD 0.941 g/cm2. Baseline: BMD 1.024 g/cm2. IDENTIFIED RISK FACTORS: Menopause, osteoporosis, thiazide, secondary osteoporosis. HISTORY OF FRACTURE: None listed. MEDICATIONS: Vitamin D. MM/XR DEXA axial skeleton IMPRESSION: 1. DIAGNOSIS: Osteopenia based on the lowest T-score value of -2.3 in the femoral neck applying World Health Organization criteria. 2. 10-YEAR FRACTURE RISK PREDICTION, FRAX: Major osteoporotic fracture (clinical spine, forearm, hip or shoulder) 13.7%. Hip fracture 3.5%. 3. Treatment Recommendations: NOF guidelines recommend consideration for treatment in postmenopausal women and men age 50 and older presenting with the following: -A hip or vertebral (clinical or morphometric) fracture. -T-score less than or equal to -2.5 at the femoral neck or spine after appropriate evaluation to exclude secondary causes. -Low bone mass at the hip or spine and a 10-year fracture probability by FRAX of greater than or equal to 3% for hip fracture or greater than or equal to 20% for major osteoporotic fracture based on the [place] adapted WHO algorithm. 4. Other Recommendations: All treatment decisions require clinical judgment and consideration of individual patient factors, including patient preferences, comorbidities, previous drug use, risk factors not captured in the FRAX model (e.g. frailty, falls, vitamin D deficiency, increased bone turnover, interval significant decline in bone density) and possible under or overestimation of fracture risk by FRAX. Additional medical evaluation for secondary cause of low bone mineral density may be appropriate. FUTURE SCAN RECOMMENDATION: People with diagnosed cases of osteoporosis or at high risk for fracture should have regular bone mineral density tests. For patients eligible for Medicare, routine testing is allowed once every 2 years. The testing frequency can be increased to one year for patients who have rapidly progressing disease, those who are receiving or discontinuing medical therapy to restore bone mass, or have additional risk factors.
== END 2022-10-06 09:02 | disposition home or self-care (01) ==
LOC: HO.MAMMO 09:01
PROVIDERS: PCP Internal Medicine; Visit Provider Internal Medicine
DX: Z12.31 Encounter for screening mammogram for malignant neoplasm of breast (principal); Z13.820 Encounter for screening for osteoporosis; Z78.0 Asymptomatic menopausal state; M85.89 Other specified disorders of bone density and structure, multiple sites
CPT/HCPCS: 77063; 77067; 77080

== ENCOUNTER → 2022-10-06 09:45 | Outpatient (BNV) | payer MEDICARE, SELFPAY | PROVIDERS: PCP Internal Medicine; Visit Provider Radiology Diagnostic Radiology | DX: Z12.31 Encounter for screening mammogram for malignant neoplasm of breast (principal) | CPT/HCPCS: 77063; 77067; 77080 ==

== ENCOUNTER 2023-03-31 09:48 | Outpatient (AMB) | payer MEDICARE, SELFPAY ==
[2023-03-31 09:50] VITALS: BP 120/86; PULSE 75; O2SAT 96; BMI 24.4
--- NOTE | 2023-03-31 09:50 | A.OFFPC_ITS ---
Vital Signs 03/31/23 09:50 Height 5 ft 1 in Weight 129 lb BMI 24.4 BP 120/86 Blood Pressure Location Rt brachial Position Sitting Pulse 75 Pulse Source Pulse Oximeter Pulse Oximetry (%) 96 Oxygen Delivery Method Room Air Intake Visit Reasons: Annual PE Intake Note: Pt is here today for her PE: Last mammogram 10/06/22, bone density scan 10/06/22, colonoscopy 06/29/20 Allergies azithromycin [From ZITHROMAX Z-CHRISTI] Allergy (Intermediate, Verified 03/31/23 10:36) GI UPSET, stomach upset alendronate sodium [Fosamax] Adverse Reaction (Unknown, Verified 03/31/23 10:36) nausea Medication List - Last Reconciled 03/31/23 by Nancy Calle MD cholecalciferol (vitamin D3) 50 mcg PO DAILY hydrochlorothiazide 12.5 mg PO QAM Tobacco use date assessed: 03/31/23 Fall risk assessment: No Falls in past year Last assessed Fall Risk: 03/31/23 Dental Screening Dental Screen Date: 03/31/23 Did you have a dental visit in the last 12 months?: Yes Did you have a dental problem in the last 6 months where you did not have access to dental care?: No Was dental information given to patient?: Patient has dentist HPI Annual PE HPI Details Last mammogram 10/06/22, bone density scan 10/06/22, colonoscopy 06/29/20 HPI Comments History of Present Illness Details 72-year-old lady here today for her phys ical exam. She has hypertension currently stable controlled on hydrochlorothiazide. She is up-to-date with her screening mammogram and bone density scan, last done in 2022 showing presence of osteopenia and multiple sites, unchanged from previous. No history of fractures. Last colonoscopy was done in 2020, not due until 2025.. She has been feeling well except for sudden onset of your pain in her left upper arm which started around Thanksgiving. No history of trauma or strenuous exertion, patient does lie on her left side when she sleeps. She has been massaging it and applying warm compress which has afforded exam improvement but patient still unable to extend left arm backwards. She is currently being followed at [facility] ordered for history of kidney stones. Currently asymptomatic. [facility] Medical History (Updated 03/31/23 @ 10:41 by Nancy Calle MD) Left upper arm pain Abdominal bloating with cramps Family history of thyroid disease Palpable thyroid Osteopenia of multiple sites Renal leak of calcium Menopause Nephrolithiasis Surgical History Hx of colonoscopy Hx of dilation and curettage Family History Father No problems noted. Mother No problems noted. Sister HX: breast cancer Maternal Grandmother No problems noted. Maternal Grandfather No problems noted. Paternal Grandmother No problems noted. Paternal Grandfather No problems noted. Maternal Uncle No problems noted. Paternal Uncle No problems noted. Social History Housing: House Alcohol intake: current Alcohol intake frequency: holidays/special occasions only Patient Tobacco Use Status: Never used Tobacco e-Cigarette/Vaping Use: Never Used Second Hand Smoke Exposure: Yes Current occupational status: retired Cognitive needs: No Hearing needs: No Vision needs: Yes Questionnaire PHQ-9 Over the last 2 weeks, how often have you been bothered by any of the following problems? 1. Little interest or pleasure in doing things: not at all 2. Feeling down, depressed, or hopeless: not at all 3. Trouble falling or staying asleep, or sleeping too much: not at all 4. Feeling tired or having little energy: not at all 5. Poor appetite or overeating: not at all 6. Feeling bad about yourself - or that you are a failure or have let yourself or your family down: not at all 7. Trouble concentrating on things, such as reading the newspaper or watching television: not at all 8. Moving or speaking so slowly that other people could have noticed. Or the opposite - being so fidgety or restless that you have been moving around a lot more than usual: not at all 9. Thoughts that you would be better off or of hurting yourself in some way: not at all Total score: 0 Depression Screening Interpretation: Negative Depression Screening Done: Yes 10086 - PHQ-9 Billing: Yes Source: Developed by Drs. Prasanth Hunter, Dorota Dumas, Matty Prabhakar and colleagues, with an educational ca from [employer]. Thrive Questionnaire Date Thrive assessed: 03/31/23 I am a: Patient What is your living situation today?: I have a steady place to live Within the past 12 months, did the food you bought not last and you didn't have the money to get more?: Never true Within the past 12 months, did you worry whether your food would run out before you got money to buy more?: Never true Do you have trouble paying for medicines?: No Do you have trouble getting transportation to medical appointments?: No Do you have trouble paying your heating and electricity bill?: No Do you have trouble taking care of your child, family member or friend?: No Do you have trouble with day-to-day activities such as bathing, preparing meals, shopping, managing finances, etc.?: No Are you currently unemployed and looking for a job?: No Are you interested in more education?: No THRIVE Score: 0 AUDIT C Alcohol Use Questionnaire (AUDIT-C) 1. How often do you have a drink containing alcohol?: Monthly or less 2. How many drinks containing alcohol do you have on a typical day when you are drinking?: 1 or 2 3. How often do you have six or more drinks on one occasion?: Never Total Score: 1 JERI-7 AMB Questionnaire JERI-7 Date JERI - 7 assessed: 03/24/22 Feeling nervous, anxious, or on edge: 0 = Not at all Not being able to stop or control worryin = Not at all Worrying too much about different things: 0 = Not at all Trouble relaxin = Not at all Being so restless that it is hard to sit still: 0 = Not at all Becoming easily annoyed or irritable: 0 = Not at all Feeling afraid as if something awful might happen: 0 = Not at all Total JERI-7 score (0-4 normal; 5-9 mild; 10-14 moderate; 15-21 severe): 0 Source: Developed by Drs. Prasanth Hunter, Dorota Dumas, Matty Prabhakar and colleagues, with an educational ca from [employer]. JERI-7 Assessment Billing JERI-7 Assessment Tool: JERI-7 Assessment 95632 Review of Systems Const Denies body aches, Denies fatigue, Denies fever(s), Denies headache(s) and Denies weakness Eyes Details: Currently sees Dr. Corbin Denies change in vision, Denies eye discharge and Denies itchy eyes ENT Reports Normal hearing present, Denies dizziness, Denies headache(s), Denies nasal congestion, Denies nasal discharge and Denies sore throat Card Denies chest pain, Denies lightheadedness, Denies palpitations and Denies dyspnea Resp Denies chest congestion, Denies cough, Denies dyspnea and Denies wheezing GI Denies abdominal pain, Denies change in bowel habits and Denies heartburn Denies urinary frequency, Denies dysuria and Denies urinary urgency Musc Reports as per HPI Skin/Breast Denies breast mass, Denies lesions and Denies rash Neuro Reports Normal hearing present, Denies dizziness, Denies headache(s), Denies Sensory deficit (Neuro) and Denies weakness Psych Reports no additional complaints Endo Denies fatigue, Denies polydipsia, Denies polyuria and Denies palpitations Rudi/Lymph Denies easy bruising Aller/Immun Denies itchy eyes, Denies seasonal rhinorrhea and Denies wheezing Physical exam (Primary Care) Vital Signs: Last Vital Signs Pulse 75 03/31/23 09:50 BP 120/86 03/31/23 09:50 Pulse Ox 96 03/31/23 09:50 Oxygen Delivery Method Room Air 03/31/23 09:50 BMI result Body Mass Index 24.4 Tobacco/Smoking Status: Tobacco use Status Tobacco use date assessed 03/31/23 03/31/23 09:52 Patient Tobacco Use Status Never used Tobacco 03/31/23 09:52 e-Cigarette/Vaping Use Never Used 03/31/23 09:52 PHQ-9: PHQ-9 Score PHQ-9: Total score 0 03/31/23 09:59 Depression Screening Interpretation: Negative Thrive Assessment: Date of Thrive Assessment Date Thrive assessed 03/31/23 03/31/23 09:59 Const General: cooperative, no acute distress and alert Orientation/consciousness: patient oriented x3 HENMT Head: Yes normal to inspection and Yes normocephalic Ears: external ears normal, TM's normal bilaterally and EAC's normal General nose exam: Normal external nose present and No nasal discharge present Face and sinus: Yes face symmetric Mouth: Normal oral and palatal mucosa present, oropharynx normal and moist mucous membranes Eyes Conjunctivae: conjunctivae normal Sclerae: sclerae normal Pupils: Equal, round and reactive pupils present EOM: EOMs intact bilaterally Neck Neck: Yes full ROM and Yes no lymphadenopathy Carotids: normal carotid upstroke Chest Chest palpation & inspection: normal inspection of the chest Breast/axilla inspection: normal inspection of the breasts Breast/axilla palpation: normal palpation of the breasts Resp Effort & Inspection: normal respiratory effort and able to speak in complete sentences Auscultation: clear to auscultation bilaterally Cardio Jugular venous distension: no JVD Rate: regular rate Rhythm: regular rhythm Heart sounds: S1 normal heart sound present and S2 normal heart sound present GI Inspection: Yes normal to inspection Palpation (GI): Soft to palpation Auscultation: normal bowel sounds General: Yes no CVA tenderness Back/Spine/Pelvis Other: mild kyphosis Back: no CVA tenderness Skin General skin exam: no rashes or lesions noted Neuro General: patient oriented x3, gait normal, moves all extremities, no focal motor deficits and CN's II-XI intact bilaterally Cranial nerves: Yes Equal, round and reactive pupils present and Yes Normal hearing present Cognition (Neuro): normal cognition Gait exam (Neuro): Normal gait present Motor exam (neuro): 5/5 motor strength present throughout Sensory Exam: No Sensory deficit (Neuro) Extrem Other: Unable to hyperextend left arm across back General: Yes normal to inspection, Yes full ROM, Yes no pedal edema and Yes normal gait Psych Appearance: grossly normal and well kempt Mental Status: mental status grossly normal Speech and movement: Normal speech and movement present Affect: normal affect Attitude: cooperative Thought process: Normal thought process present Thought content: Normal thought content present Assessment and Plan Assessment & Plan (1) Encounter for general adult medical examination with abnormal findings: Code(s): Z00.01 - Encounter for general adult medical examination with abnormal findings Plan: Will check appropriate labs. Continue with regular dental visit every 6 months and regular eye exams, at least every 2 years. Take adequate calcium in diet and vitamin-D 3 at 2000 IU per cap once a day, in addition to weight-bearing exercises to help maintain good muscle tone and weight control. Instructed to do self-breast exam, and continue yearly mammogram, for up-to-date, due for repeat bone density scan in 2024. Up-to-date with her screening colonoscopy, due again in 2025 reminded to get her shingles vaccination, up-to-date with her flu shot, and pneumonia vaccine, declines to get COVID booster or RSV (2) Left upper arm pain: Code(s): M79.622 - Pain in left upper arm Plan: Referred for physical therapy (3) Osteopenia of multiple sites: Code(s): M85.89 - Other specified disorders of bone density and structure, multiple sites Plan: Continue with regular weight-bearing exercise, take adequate calcium from dietary sources, and continue with taking cholecalciferol 50 mcg daily. Repeat another bone density scan in 2024 (4) Nephrolithiasis: Code(s): N20.0 - Calculus of kidney Plan: Currently being followed by [facility], currently asymptomatic Orders: Orders PT Evaluation and Treatment Today M79.622 - Pain in left upper arm Alanine Aminotransferase Today M85.89 - Other specified disorders of bone density and structure, multiple sites, Z78.0 - Asymptomatic menopausal state Lipid Panel Today M85.89 - Other specified disorders of bone density and structure, multiple sites, Z78.0 - Asymptomatic menopausal state Aspartate Amino Transferase Today M85.89 - Other specified disorders of bone density and structure, multiple sites, Z78.0 - Asymptomatic menopausal state Basic Metabolic Panel Fasting Today M85.89 - Other specified disorders of bone density and structure, multiple sites, Z78.0 - Asymptomatic menopausal state Vitamin D 25-OH Total Today M85.89 - Other specified disorders of bone density and structure, multiple sites, Z78.0 - Asymptomatic menopausal state TSH reflex Free T4 Today E07.89 - Other specified disorders of thyroid, Z83.49 - Family history of other endocrine, nutritional and metabolic diseases Coding Level of Care Code Est Pt Prev Care >65y(10899) Diagnoses Encounter for general adult medical examination with abnormal findings Z00.01 Left upper arm pain M79.622 Osteopenia of multiple sites M85.89 Nephrolithiasis N20.0 Additional Codes JERI-7 Assessment Billing - JERI-7 Assessment Tool: JERI-7 Assessment 07575 ([id number])
== END 2023-03-31 10:36 | disposition home or self-care (01) ==
PROVIDERS: PCP Internal Medicine; Visit Provider Internal Medicine
DX: Z00.00 Encounter for general adult medical examination without abnormal findings (principal); M79.622 Pain in left upper arm; M85.89 Other specified disorders of bone density and structure, multiple sites; N20.0 Calculus of kidney
CPT/HCPCS: 99397

== ENCOUNTER 2023-04-12 08:08 | Outpatient (REF) | payer MEDICARE, SELFPAY ==
[2023-04-12 11:42] LABS: Alanine Aminotransferase 27 U/L (0-31); Anion Gap 12 (12-20); Aspartate Amino Transferase 21 U/L (5-31); Blood Urea Nitrogen 31 mg/dL (9-16); Calcium 9.4 mg/dL (8.4-10.2); Carbon Dioxide 36 mmol/L (22-29); Chloride 99 mmol/L (96-108); Cholesterol 198 mg/dL (<200); Estimated Glomerular Filt Rate > 60; Glucose Fasting 103 mg/dL (60-99); HDL Cholesterol 77 mg/dL (>40); LDL Cholesterol Calculated 107 mg/dL (<100); Potassium 3.4 mmol/L (3.3-5.1); Sodium 144 mmol/L (135-145); Triglycerides 72 mg/dL (<150)
[2023-04-12 12:01] LABS: TSH reflex Free T4 1.37 uIU/mL (0.32-4.0); Vitamin D 25-OH Total 50.1 ng/mL (>30)
== END 2023-04-12 08:09 | disposition home or self-care (01) ==
LOC: HO.HMGCLDS 08:08
PROVIDERS: PCP Internal Medicine; Visit Provider Internal Medicine
DX: M85.89 Other specified disorders of bone density and structure, multiple sites (principal); E07.89 Other specified disorders of thyroid; Z83.49 Family history of other endocrine, nutritional and metabolic diseases; Z78.0 Asymptomatic menopausal state
CPT/HCPCS: 36415; 80048; 80061; 82306; 84443; 84450; 84460

== ENCOUNTER 2023-05-03 11:00 | Outpatient (RCR) | payer MEDICARE, SELFPAY ==
[2023-04-28 10:11] VITALS: BP 150/72; O2SAT 98
--- NOTE | 2023-04-28 13:59 | MHC.PT.EP ---
[facility] [place] Office [place] Office [place] Office [address] Lawson Harmon [address] [phone] F: [phone] F: [phone] F: [phone] F: [phone] Physical Therapy Plan of Care Date of Evaluation: 04/28/23 Date of Surgery: Diagnosis: L upper arm pain. Assessment: Pt is a 72 y/o LHD female with Hx of osteopenia who is referred to PT for eval and treat of L upper arm pain who reports symptoms since December around and has been having difficulty and pain pulling up her paints, dressing jackets and pullovers, laying and sleeping on her L side, as well as reaching out to the side as well as reaching high shelves secondary to decreased L shoulder ROM and strength, decreased scapular posture, TTP of anterior/ medial L upper arm, and pain. Pt is deemed an appropriate candidate to receive skilled PT services to address their physical impairments in order to improve their functional ability. Frequency and Duration: The patient will be seen 2x/wk x3 wks. Short Term Goals: Initiate home program. Improve baseline pain with activity to < 4/10; initial: 6/10. Halfway Goals: I with home program. Improve L shoulder abduction to at least 125 degrees; initial: 80 degrees painful end. Improve L shoulder ER strength by at least 1/2 MMT grade; initial 4/5. Improve SPADI outcome measure by at least 9 points. Treatment Plan: Modalities to reduce pain, spasms and effusion. Manual therapy to restore motion and function. Therapeutic exercise to improve strength and flexibility. Neuromuscular re-education for posture and balance. Therapeutic activities to return to functional activities of daily living. Electronically signed by: Aguila Shen PT. Please sign and return to therapist. Thank you for your referral.
--- NOTE | 2023-05-26 07:28 | MHC.PT.DC ---
[facility] [place] Office [place] Office [place] Office [address] Laswon Harmon [address] [phone] F: [phone] F: [phone] F: [phone] F: [phone] Physical Therapy Discharge Report Diagnosis: L upper arm pain. Date of Surgery: Date of Evaluation: 04/28/23 Date of Discharge: 05/26/23 Treatments to Date: 3 Cancellations to Date: No Shows to Date: Discharge Status: Improved Function Independent with HEP Discharge Summary: THE Pt REMAINS MOTIVATED W HER HEP AND THE RESOLVING PAIN IN HER LEFT SH- SHE HAS BEEN ABLE TO PERFORM INCR FUNCTIONAL TASKS / RESUME REGULAR ADLs W/O DISCOMFORT- SHE BENEFITS FROM [facility] RE POSITIONING / STABILIZING HER TRUNK-> THE Pt DID NOT SCHED ADDITIONAL PT APPTS AT THIS TIME AND IS DISCHARGED FROM PT. Electronically signed by: COURTNEY SALINAS,PT Please sign and return to therapist. Thank you for your referral.
== END 2023-05-26 07:28 | disposition home or self-care (01) ==
LOC: HO.PT 11:00
PROVIDERS: PCP Internal Medicine; Visit Provider Internal Medicine
DX: M79.622 Pain in left upper arm (principal)
CPT/HCPCS: 97110; 97161

== ENCOUNTER 2023-07-05 08:15 | Outpatient (REF) | payer MEDICARE, SELFPAY ==
--- NOTE | ~2023-07-05 | US_ITS ---
EXAMINATION: US RETROPERITONEAL LIMITED (RENAL ONLY) CLINICAL INFORMATION: Kidney stones. COMPARISON: Renal ultrasound 06/13/2022. Ultrasound kidneys and bladder 05/12/2021. CT abdomen and pelvis 01/27/2017. TECHNIQUE: Real-time imaging of the kidneys. Limited visualization due to bowel gas. FINDINGS: RIGHT KIDNEY: 11.5 x 4.2 x 6.7 cm (SAG x AP x TRV). The kidney is normal in size, contour, and echogenicity. Renal cortical thickness is normal. No renal calculi or hydronephrosis. A 4.7 x 3.6 x 3.9 cm [id number] pole cyst with septations measured 4 x 3.4 x 4.6 cm on 06/13/2022, 4.1 x 3.5 x 4.1 cm on 05/12/2021, and 4.5 x 3.2 x 3.9 cm on 05/04/2020. LEFT KIDNEY: 11.5 x 5.2 x 5.5 cm (SAG x AP x TRV). The kidney is normal in size, contour, and echogenicity. Renal cortical thickness is normal. A 0.3 cm left lower pole calculus. No hydronephrosis. Prominent renal pyramids. US/US renal BI IMPRESSION: 1. A 4.7 cm right renal cyst with septations has not significantly changed in size compared with exams dating back to 05/04/2020. 2. A 0.3 cm left lower pole calculus. No hydronephrosis.
== END 2023-07-05 08:16 | disposition home or self-care (01) ==
LOC: HO.US 08:15
PROVIDERS: PCP Internal Medicine; Visit Provider Physician Assistant
DX: N20.0 Calculus of kidney (principal)
CPT/HCPCS: 76775

== ENCOUNTER 2023-10-09 08:33 | Outpatient (REF) | payer MEDICARE, SELFPAY ==
--- NOTE | ~2023-10-09 | MM_ITS ---
EXAMINATION: MM SCREENING DIGITAL BREAST TOMOSYNTHESIS, BILATERAL CLINICAL INFORMATION: Screening. Asymptomatic. COMPARISON: Mammography: 10/06/2022, 10/04/2021, 09/30/2020, 08/14/2019, and dating back to 2013. TECHNIQUE: Digital breast tomosynthesis is performed in both the craniocaudal and mediolateral oblique views along with computer-aided detection (CAD). Synthesized 2D images are generated from the tomosynthesis. In addition to standard views, a 3-D left exaggerated lateral CC view was obtained, as well as added full-field left and right MLO views. FINDINGS: The breasts are heterogeneously dense, which may obscure small masses (ACR BI-RADS breast composition Category c). Ribbon-shaped biopsy clip in the right breast, 11:00 axis, middle one third from benign biopsy. Stable benign-appearing calcifications upper outer left breast. There are no suspicious masses, suspicious grouped calcifications, or areas of architectural distortion in either breast. The parenchymal pattern is stable from prior exams. There is no skin or axillary abnormality. MM/MM tomosynthesis screening BI IMPRESSION: No mammographic evidence of malignancy. Stable benign findings. ASSESSMENT: BI-RADS BI-RADS 2 - Benign Findings RECOMMENDATION: Routine annual mammography screening. 1 year F/U This examination should not preclude the clinical evaluation of a suspicious palpable abnormality. This patient's information was entered into a reminder system with a target due date for their next mammogram.
== END 2023-10-09 08:34 | disposition home or self-care (01) ==
LOC: HO.MAMMO 08:33
PROVIDERS: PCP Internal Medicine; Visit Provider Internal Medicine
DX: Z12.31 Encounter for screening mammogram for malignant neoplasm of breast (principal)
CPT/HCPCS: 77063; 77067

== ENCOUNTER → 2023-10-09 08:45 | Outpatient (BNV) | payer MEDICARE, SELFPAY | PROVIDERS: PCP Internal Medicine; Visit Provider Radiology Diagnostic Radiology | DX: Z12.31 Encounter for screening mammogram for malignant neoplasm of breast (principal) | CPT/HCPCS: 77063; 77067 ==

== ENCOUNTER 2023-10-26 10:32 | Outpatient (AMB) | payer MEDICARE, SELFPAY ==
--- NOTE | 2023-10-26 10:36 | MHC.PC.OV ---
Vital Signs 10/26/23 10:38 Height 5 ft 1 in Weight 129 lb 6 oz BMI 24.4 BP 130/82 Blood Pressure Location Lt brachial Position Sitting Pulse 72 Pulse Source Pulse Oximeter Pulse Oximetry (%) 99 Oxygen Delivery Method Room Air Intake Visit Reasons: 6M F/U BP Check Intake Note: Patient here for 6month BP f/u Allergies azithromycin [From ZITHROMAX Z-CHRISTI] Allergy (Intermediate, Verified 10/26/23 11:08) GI UPSET, stomach upset alendronate sodium [Fosamax] Adverse Reaction (Unknown, Verified 10/26/23 11:08) nausea Medication List - Last Reconciled 10/26/23 by Nancy Calle MD cholecalciferol (vitamin D3) 50 mcg PO DAILY hydrochlorothiazide 12.5 mg PO QAM Tobacco use date assessed: 03/31/23 Fall risk assessment: No Falls in past year Last assessed Fall Risk: 10/26/23 Dental Screening Dental Screen Date: 03/31/23 HPI 6M F/U BP Check HPI Details 73-year-old lady with hypertension currently taking only hydrochlorothiazide 12.5 mg once a day in a.m., here today for follow-up. She has been feeling well, blood pressure now has been within normal limits. She attributes the rise in blood pressure from having constant pain in left arm . She completed physical therapy for her left arm pain, with good results. Has full range of motion now in both upper extremities, with no further pain or numbness or tingling experienced, and blood pressure is not back to normal limits. [facility] Medical History Essential hypertension Abdominal bloating with cramps Family history of thyroid disease Palpable thyroid Osteopenia of multiple sites Renal leak of calcium Menopause Nephrolithiasis Surgical History Hx of colonoscopy Hx of dilation and curettage Family History Father No problems noted. Mother No problems noted. Sister HX: breast cancer Maternal Grandmother No problems noted. Maternal Grandfather No problems noted. Paternal Grandmother No problems noted. Paternal Grandfather No problems noted. Maternal Uncle No problems noted. Paternal Uncle No problems noted. Social History Housing: House Alcohol intake: current Alcohol intake frequency: holidays/special occasions only Patient Tobacco Use Status: Never used Tobacco e-Cigarette/Vaping Use: Never Used Second Hand Smoke Exposure: Yes Current occupational status: retired Cognitive needs: No Hearing needs: No Vision needs: Yes Questionnaire PHQ-9 Over the last 2 weeks, how often have you been bothered by any of the following problems? 1. Little interest or pleasure in doing things: not at all 2. Feeling down, depressed, or hopeless: not at all 3. Trouble falling or staying asleep, or sleeping too much: not at all 4. Feeling tired or having little energy: not at all 5. Poor appetite or overeating: not at all 6. Feeling bad about yourself - or that you are a failure or have let yourself or your family down: not at all 7. Trouble concentrating on things, such as reading the newspaper or watching television: not at all 8. Moving or speaking so slowly that other people could have noticed. Or the opposite - being so fidgety or restless that you have been moving around a lot more than usual: not at all 9. Thoughts that you would be better off or of hurting yourself in some way: not at all Total score: 0 Depression Screening Interpretation: Negative Depression Screening Done: Yes 87985 - PHQ-9 Billing: Yes Source: Developed by Drs. Prasanth Hunter, Dorota Dumas, Matty Prabhakar and colleagues, with an educational ca from [employer]. Thrive Questionnaire Date Thrive assessed: 10/19/23 I am a: Patient What is your living situation today?: I have a steady place to live Within the past 12 months, did the food you bought not last and you didn't have the money to get more?: Never true Within the past 12 months, did you worry whether your food would run out before you got money to buy more?: Never true Do you have trouble paying for medicines?: No Do you have trouble getting transportation to medical appointments?: No Do you have trouble paying your heating and electricity bill?: No Do you have trouble taking care of your child, family member or friend?: No Do you have trouble with day-to-day activities such as bathing, preparing meals, shopping, managing finances, etc.?: No Are you currently unemployed and looking for a job?: No Are you interested in more education?: No Please select the resources that you would like help with: None Currently or been in a relationship where the following occur: No concerns reported THRIVE Score: 0 AUDIT C Alcohol Use Questionnaire (AUDIT-C) 1. How often do you have a drink containing alcohol?: Monthly or less 2. How many drinks containing alcohol do you have on a typical day when you are drinking?: 1 or 2 3. How often do you have six or more drinks on one occasion?: Never Total Score: 1 JERI-7 AMB Questionnaire JERI-7 Date JERI - 7 assessed: 10/26/23 Feeling nervous, anxious, or on edge: 0 = Not at all Not being able to stop or control worryin = Not at all Worrying too much about different things: 0 = Not at all Trouble relaxin = Not at all Being so restless that it is hard to sit still: 0 = Not at all Becoming easily annoyed or irritable: 0 = Not at all Feeling afraid as if something awful might happen: 0 = Not at all Total JERI-7 score (0-4 normal; 5-9 mild; 10-14 moderate; 15-21 severe): 0 Source: Developed by Drs. Prasanth Hunter, Dorota Dumas, Matty Prabhakar and colleagues, with an educational ca from [employer]. JERI-7 Assessment Billing JERI-7 Assessment Tool: JERI-7 Assessment 63525 Review of Systems Const Denies body aches, Denies fatigue, Denies fever(s), Denies headache(s) and Denies weakness Eyes Details: Currently sees Dr. Corbin Denies change in vision ENT Reports Normal hearing present, Denies dizziness, Denies headache(s), Denies nasal congestion, Denies nasal discharge and Denies sore throat Card Denies chest pain, Denies lightheadedness, Denies palpitations and Denies dyspnea Resp Denies chest congestion, Denies cough, Denies dyspnea and Denies wheezing GI Denies abdominal pain, Denies change in bowel habits and Denies heartburn Denies urinary frequency, Denies dysuria and Denies urinary urgency Musc Reports as per HPI Skin/Breast Denies breast mass, Denies lesions and Denies rash Neuro Reports Normal hearing present, Denies dizziness, Denies headache(s), Denies Sensory deficit (Neuro) and Denies weakness Psych Reports no additional complaints Endo Denies fatigue, Denies polydipsia, Denies polyuria and Denies palpitations Rudi/Lymph Denies easy bruising Aller/Immun Denies seasonal rhinorrhea and Denies wheezing Physical exam (Primary Care) Vital Signs: Last Vital Signs Pulse 72 10/26/23 10:38 BP 130/82 10/26/23 10:38 Pulse Ox 99 10/26/23 10:38 Oxygen Delivery Method Room Air 10/26/23 10:38 BMI result Body Mass Index 24.4 Tobacco/Smoking Status: Tobacco use Status Tobacco use date assessed 03/31/23 10/26/23 10:38 Patient Tobacco Use Status Never used Tobacco 10/26/23 10:38 e-Cigarette/Vaping Use Never Used 10/26/23 10:38 PHQ-9: PHQ-9 Score PHQ-9: Total score 0 10/26/23 11:11 Depression Screening Interpretation: Negative Thrive Assessment: Date of Thrive Assessment Date Thrive assessed 10/19/23 10/26/23 10:38 Currently or been in a relationship where the following occur: No concerns reported Const General: cooperative, no acute distress and alert Orientation/consciousness: patient oriented x3 HENMT Head: Yes normal to inspection Ears: external ears normal, TM's normal bilaterally and EAC's normal General nose exam: Normal external nose present and No nasal discharge present Face and sinus: Yes face symmetric Mouth: Normal oral and palatal mucosa present, oropharynx normal and moist mucous membranes Eyes Conjunctivae: conjunctivae normal Sclerae: sclerae normal Pupils: Equal, round and reactive pupils present EOM: EOMs intact bilaterally Neck Neck: Yes full ROM and Yes no lymphadenopathy Carotids: normal carotid upstroke Chest Chest palpation & inspection: normal inspection of the chest Breast/axilla inspection: normal inspection of the breasts Breast/axilla palpation: normal palpation of the breasts Resp Effort & Inspection: normal respiratory effort and able to speak in complete sentences Auscultation: clear to auscultation bilaterally Cardio Jugular venous distension: no JVD Rate: regular rate Rhythm: regular rhythm Heart sounds: S1 normal heart sound present and S2 normal heart sound present GI Inspection: Yes normal to inspection Palpation (GI): Soft to palpation Auscultation: normal bowel sounds General: Yes no CVA tenderness Back/Spine/Pelvis Other: mild kyphosis Back: no CVA tenderness Skin General skin exam: no rashes or lesions noted Neuro General: patient oriented x3, gait normal, moves all extremities, no focal motor deficits and CN's II-XI intact bilaterally Cranial nerves: Yes Equal, round and reactive pupils present and Yes Normal hearing present Cognition (Neuro): normal cognition Gait exam (Neuro): Normal gait present Motor exam (neuro): 5/5 motor strength present throughout Sensory Exam: No Sensory deficit (Neuro) Extrem Other: Unable to hyperextend left arm across back General: Yes normal to inspection, Yes full ROM, Yes no pedal edema and Yes normal gait Psych Affect: normal affect Assessment and Plan Assessment & Plan (1) Essential hypertension: Code(s): I10 - Essential (primary) hypertension Plan: Blood pressure at goal of less than 130/80. Continue hydrochlorothiazide 12.5 mg daily in a.m.. Reinforced importance of following a low sodium diet, getting regular exercise, and lowering stress levels. Orders: Orders Alanine Aminotransferase 03/23/24 I10 - Essential (primary) hypertension, M85.89 - Other specified disorders of bone density and structure, multiple sites, Z78.0 - Asymptomatic menopausal state Lipid Panel 03/23/24 I10 - Essential (primary) hypertension, M85.89 - Other specified disorders of bone density and structure, multiple sites, Z78.0 - Asymptomatic menopausal state Basic Metabolic Panel Fasting 03/23/24 I10 - Essential (primary) hypertension, M85.89 - Other specified disorders of bone density and structure, multiple sites, Z78.0 - Asymptomatic menopausal state Hemoglobin and Hematocrit 03/23/24 I10 - Essential (primary) hypertension, M85.89 - Other specified disorders of bone density and structure, multiple sites, Z78.0 - Asymptomatic menopausal state Aspartate Amino Transferase 03/23/24 I10 - Essential (primary) hypertension, M85.89 - Other specified disorders of bone density and structure, multiple sites, Z78.0 - Asymptomatic menopausal state Vitamin D 25-OH Total 03/23/24 I10 - Essential (primary) hypertension, M85.89 - Other specified disorders of bone density and structure, multiple sites, Z78.0 - Asymptomatic menopausal state Coding Level of Care Code Est Pt Level 3 (31315) Diagnoses Essential hypertension I10 Additional Codes JERI-7 Assessment Billing - JERI-7 Assessment Tool: JERI-7 Assessment 45160 ([id number])
[2023-10-26 10:38] VITALS: BP 130/82; PULSE 72; O2SAT 99; BMI 24.4
== END 2023-10-26 12:04 | disposition home or self-care (01) ==
PROVIDERS: PCP Internal Medicine; Visit Provider Internal Medicine
DX: I10 Essential (primary) hypertension (principal)
CPT/HCPCS: 99213

== ENCOUNTER 2024-07-04 09:53 | Outpatient (REF) | payer MEDICARE, SELFPAY ==
--- NOTE | ~2024-07-04 | US_ITS ---
CLINICAL HISTORY: CALCULUS OF KIDNEY US Renal Comparison: 07/05/2023 Findings: Right kidney normal size and echotexture, 10.9 cm length. Left kidney normal size and echotexture, 12.5 cm length. No hydronephrosis of either kidney. 5.3 x 4.3 x 4.1 cm (versus 4.7 x 3.9 x 3.6 cm previously) right renal cyst with at least 1 internal septation. 6 mm nonobstructive left lower polar stone. 15 mm mildly collapsed left renal cyst with a hairline thin septation not definitely seen on prior exam (on an earlier 06/13/2022 study 15 mm cyst was seen at this level). IMPRESSION: 5.3 cm (versus 4.7 cm previously 4 cm on the 06/13/2022 exam) right renal cyst with at least 1 internal thin septation. Continued annual follow-up recommended. This document has been electronically signed by: Vera Wolf MD on 07/04/2024 11:54:15
--- OUTSIDE RECORDS SUMMARY | 2024-07-04 10:47 | XMS_ITS | Patient Health Record ---
Author Organization [facility] Address [address] [place] [address] Care Team Providers Care Cleaning Maid Name Role Phone Alva VELOZ, Nancy Primary Care Provider Prasanth Florence [phone] Allergies Allergen (clinical drug ingredient) Drug/Non Drug Allergy documented on EMR Reaction Allergy Type Onset Date Status alendronate Fosamax Unknown Drug Allergy Activ e azithromycin Z Pack (uncoded) Unknown Allergy Active Reason For Referral No Information Medications Medication SIG (Take, Route, Frequency, Duration) Notes Start Date End Date Status Hyoscyamine Sulfate 0.125 MG 1 or 2 on the tongue Orally Every 4-6 hoirs as needed for abdominal discomfort for 30 days 03/05/2022 Active Vitamin D Active hydroCHLOROthiazide 12.5 MG Orally For kidney stones Active Immunizations Vaccine Route Administration Date Status Comme nts Influenza Unknown 02/07/2020 Administered Influenza Unknown 12/01/2021 Administered Social History Tobacco Use: Social History Observation Description Date Details (start date - stop date) Never Smoker NA - NA Tobacco Use/Smoking Question Answer Notes Patient is a nonsmoker Alcohol Screen Question Answer Notes Did you have a drink containing alcohol in the p ast year? No Points 0 Interpretation Negative Problems Problem Type SNOMED Code ICD Code Onset Dates Problem Status W/U Status Risk Notes Problem 89079827 Rectal bleeding (K62.5) Active confirmed Problem 385850957 History of adenomatous polyp of colon (Z86.010) Active confirmed Problem 358447974 Family history of colon cancer (Z80.0) Active confirmed Problem 97055370 Ischemic colitis (K55.9) Active confirmed Problem 408043059 Left lower quadrant abdominal pain (R10.32) Active confirmed Plan Of Treatment Future Test Test Name Order Date COLONOSCOPY 06/25/2020 Insurance Providers Payer Name Payer Address Payer Phone Subscriber Number Group Number Insured Name Patient Relationship to Insured Coverage Start Date Coverage End Date [facility] [address] [facility] [place] [phone] [id number] IVAN BOLDEN Self - patient is the insured Medical (General) History Medical History History ICD Code Kidney stones Osteoporosis Colonoscopies with Dr. Luis Manuel nazario with tubular adenomas and hyperplastic polyps removed-most recent was 02/2020 Denies [place],DM,CVA,Lung disease,renal dise ase Ischemic colitis--Colonoscop y in June of 2020 revealed a segment of what appeared to be a resolving ischemic colitis between 50 and 60 cm, as well as a small tubular adenoma. At that time she had presented with the acute onset of abdominal pain, increased bowel movement frequency, and rectal bleeding. This resolved spontaneously. Surgical History Surgery Date(Month/Year) D&C Left eye surgery
== END 2024-07-04 09:54 | disposition home or self-care (01) ==
LOC: HO.US 09:53
PROVIDERS: PCP Internal Medicine; Visit Provider Physician Assistant
DX: N20.0 Calculus of kidney (principal)
CPT/HCPCS: 76775

== ENCOUNTER → 2024-07-04 10:10 | Outpatient (BNV) | payer MEDICARE, SELFPAY | PROVIDERS: PCP Internal Medicine; Visit Provider Radiology Diagnostic Radiology | DX: N28.1 Cyst of kidney, acquired (principal) | CPT/HCPCS: 76775 ==

== ENCOUNTER 2024-07-29 07:46 | Outpatient (REF) | payer MEDICARE, SELFPAY ==
--- OUTSIDE RECORDS SUMMARY | 2024-07-29 07:48 | XMS_ITS | Patient Health Record ---
Author Organization [facility] Address [address] [place] [address] Care Team Providers Care Senior Loss Control Specialist Name Role Phone Alva VELOZ, Nancy Primary Care Provider Prasanth Florence [phone] Allergies Allergen (clinical drug ingredient) Drug/Non Drug [...] Problem Status W/U Status Risk Notes Problem 17500765 Rectal bleeding (K62.5) Active confirmed Problem 697611461 History of adenomatous polyp of colon (Z86.010) Active confirmed Problem 046418755 Family history of colon cancer (Z80.0) Active confirmed Problem 84230438 Ischemic colitis (K55.9) Active confirmed Problem 899242388 Left lower quadrant abdominal pain (R10.32) Active confirmed Plan Of Treatment Future Test Test Name Order Date COLONOSCOPY 06/25/2020 Insurance Providers Payer Name Payer Address Payer Phone Subscriber Number Group Number Insured Name Patient Relationship to Insured Coverage Start Date Coverage End Date [facility] [address] [facility] [place] [phone] [id number] IVAN BOLDEN Self - patient is the insured Medical (General) History Medical History History ICD Code Kidney stones Osteoporosis Colonoscopies with Dr. Luis Manuel nazario with tubular adenomas and hyperplastic polyps removed-most recent was 02/2020 Denies [place],DM,CVA,Lung disease,renal dise ase Ischemic colitis--Colonoscop y in [...]
[2024-07-29 10:23] LABS: Hematocrit 44.7 % (37.0-47.0); Hemoglobin 15.3 g/dl (12.0-16.0)
[2024-07-29 10:43] LABS: Alanine Aminotransferase 43 U/L (0-31); Anion Gap 10 (12-20); Aspartate Amino Transferase 30 U/L (5-31); Blood Urea Nitrogen 16 mg/dL (9-16); Calcium 9.4 mg/dL (8.4-10.2); Carbon Dioxide 34 mmol/L (22-29); Chloride 102 mmol/L (96-108); Cholesterol 217 mg/dL (<200); Estimated Glomerular Filt Rate > 60; Glucose Fasting 100 mg/dL (60-99); HDL Cholesterol 75 mg/dL (>40); LDL Cholesterol Calculated 120 mg/dL (<100); Potassium 3.4 mmol/L (3.3-5.1); Sodium 143 mmol/L (135-145); Triglycerides 112 mg/dL (<150)
[2024-07-29 10:58] LABS: Vitamin D 25-OH Total 56.6 ng/mL (>30)
== END 2024-07-29 07:47 | disposition home or self-care (01) ==
LOC: HO.HMGCLDS 07:46
PROVIDERS: PCP Internal Medicine; Visit Provider Internal Medicine
DX: Z78.0 Asymptomatic menopausal state (principal); M85.89 Other specified disorders of bone density and structure, multiple sites; I10 Essential (primary) hypertension
CPT/HCPCS: 36415; 80048; 80061; 82306; 84450; 84460; 85014; 85018

== ENCOUNTER 2024-10-10 09:32 | Outpatient (REF) | payer MEDICARE, SELFPAY ==
--- OUTSIDE RECORDS SUMMARY | 2024-10-10 10:45 | XMS_ITS | Patient Health Record ---
Author Organization [facility] Address [address] [place] [address] Care Team Providers Care Injury/Safety Hazard Assessment Name Role Phone Alva VELOZ, Nancy Primary Care Provider Prasanth Florence [phone] Allergies Allergen (clinical drug ingredient) Drug/Non Drug [...] Problem Status W/U Status Risk Notes Problem 42647259 Rectal bleeding (K62.5) Active confirmed Problem 858749489 History of adenomatous polyp of colon (Z86.010) Active confirmed Problem 704886952 Family history of colon cancer (Z80.0) Active confirmed Problem 03772765 Ischemic colitis (K55.9) Active confirmed Problem 133029639 Left lower quadrant abdominal pain (R10.32) Active confirmed Plan Of Treatment Future Test Test Name Order Date COLONOSCOPY 06/25/2020 Insurance Providers Payer Name Payer Address Payer Phone Subscriber Number Group Number Insured Name Patient Relationship to Insured Coverage Start Date Coverage End Date [facility] [address] [facility] [place] [phone] [id number] IVAN BOLDEN Self - patient is the [...]
== END 2024-10-10 09:33 | disposition home or self-care (01) ==
LOC: HO.MAMMO 09:32
PROVIDERS: PCP Internal Medicine; Visit Provider Internal Medicine
DX: Z12.31 Encounter for screening mammogram for malignant neoplasm of breast (principal)
CPT/HCPCS: 77063; 77067

== ENCOUNTER → 2024-10-10 09:45 | Outpatient (BNV) | payer MEDICARE, SELFPAY | PROVIDERS: PCP Internal Medicine; Visit Provider Internal Medicine | DX: Z12.31 Encounter for screening mammogram for malignant neoplasm of breast (principal) | CPT/HCPCS: 77063; 77067 ==

== ENCOUNTER 2024-10-14 13:17 | Outpatient (AMB) | payer MEDICARE, SELFPAY ==
[2024-10-14 13:28] VITALS: BP 118/90; PULSE 79; RESP 16; TEMP 36.7; O2SAT 98; BMI 24.9
--- NOTE | 2024-10-14 13:28 | MHC.PC.OV ---
Vital Signs 10/14/24 13:28 Height 5 ft 1 in Weight 132 lb BMI 24.9 BP 118/90 H Blood Pressure Location Lt brachial Position Sitting Respiration 16 Pulse 79 Pulse Source Pulse Oximeter Temp 98.1 F Temp Source Oral Pulse Oximetry (%) 98 Oxygen Delivery Method Room Air Intake Visit Reasons: PE Intake Note: Pt is here today for her PE: Last mammogram 10/10/24, bone density scan 10/06/24, colonoscopy 06/29/20 Allergies azithromycin (From ZITHROMAX Z-CHRISTI) Allergy (Intermediate, Verified 10/14/24 13:52) GI UPSET, stomach upset alendronate sodium (Fosamax) Adverse Reaction (Unknown, Verified 10/14/24 13:52) nausea Medication List - Last Reconciled 10/14/24 by Nancy Calle MD cholecalciferol (vitamin D3) 50 mcg PO DAILY hydrochlorothiazide 12.5 mg PO QAM Tobacco use date assessed: 10/14/24 Fall risk assessment: No Falls in past year Last assessed Fall Risk: 10/14/24 Dental Screening Dental Screen Date: 10/14/24 Did you have a dental visit in the last 12 months?: Yes Did you have a dental problem in the last 6 months where you did not have access to dental care?: Yes Was dental information given to patient?: Patient has dentist HPI PE HPI Details 74-year-old lady here today for her physical exam. She has hypertension currently stable and controlled on hydrochlorothiazide 12.5 mg taken once a day in the morning. Has osteopenia with no history of fractures. Last mammogram 10/10/24, Dense breast tissue with developing calcification in the left breast. Family history of breast cance bone density scan 10/06/24 showed osteopenia in the left hip, femur, and lower back, with no history of fractures. , colonoscopy done by Dr. Ignacio @ [facility] on 06/29/2020, Tubular adenoma, repeat in 5 years per report (2025) - Liver Enzymes: Mildly elevated with increased triglycerides and cholesterol. - Kidney Stone: Growth noted, CT scan planned. . Vaccinations include flu and shingles. PFSH Medical History (Updated 10/14/24 @ 14:23 by Nancy Calle MD) Family history of breast cancer in sister Calcification of left breast Essential hypertension Abdominal bloating with cramps Family history of thyroid disease Palpable thyroid Osteopenia of multiple sites Renal leak of calcium Menopause Nephrolithiasis Surgical History Hx of colonoscopy Hx of dilation and curettage Family History Father No problems noted. Mother No problems noted. Sister HX: breast cancer Maternal Grandmother No problems noted. Maternal Grandfather No problems noted. Paternal Grandmother No problems noted. Paternal Grandfather No problems noted. Maternal Uncle No problems noted. Paternal Uncle No problems noted. Social History Housing: House Alcohol intake: current Alcohol intake frequency: holidays/special occasions only Patient Tobacco Use Status: Never used Tobacco e-Cigarette/Vaping Use: Never Used Second Hand Smoke Exposure: Yes service: No Current occupational status: retired Cognitive needs: No Hearing needs: No Vision needs: Yes Questionnaire PHQ-9 Over the last 2 weeks, how often have you been bothered by any of the following problems? 1. Little interest or pleasure in doing things: not at all 2. Feeling down, depressed, or hopeless: not at all 3. Trouble falling or staying asleep, or sleeping too much: not at all 4. Feeling tired or having little energy: not at all 5. Poor appetite or overeating: not at all 6. Feeling bad about yourself - or that you are a failure or have let yourself or your family down: not at all 7. Trouble concentrating on things, such as reading the newspaper or watching television: not at all 8. Moving or speaking so slowly that other people could have noticed. Or the opposite - being so fidgety or restless that you have been moving around a lot more than usual: not at all 9. Thoughts that you would be better off or of hurting yourself in some way: not at all Total score: 0 Depression Screening Interpretation: Negative Depression Screening Done: Yes 33388 - PHQ-9 Billing: Yes Source: Developed by Drs. Prasanth Hunter, Dorota Dumas, Matty Prabhakar and colleagues, with an educational ac from [employer]. Thrive Questionnaire Date Thrive assessed: 04/02/24 I am a: Patient What is your living situation today?: I have a steady place to live Within the past 12 months, did the food you bought not last and you didn't have the money to get more?: Never true Within the past 12 months, did you worry whether your food would run out before you got money to buy more?: Never true Do you have trouble paying for medicines?: No Do you have trouble getting transportation to medical appointments?: No Do you have trouble paying your heating and electricity bill?: No Do you have trouble taking care of your child, family member or friend?: No Do you have trouble with day-to-day activities such as bathing, preparing meals, shopping, managing finances, etc.?: No Are you currently unemployed and looking for a job?: No Are you interested in more education?: No Please select the resources that you would like help with: None Currently or been in a relationship where the following occur: No concerns reported THRIVE Score: 0 AUDIT C Alcohol Use Questionnaire (AUDIT-C) 1. How often do you have a drink containing alcohol?: Monthly or less 2. How many drinks containing alcohol do you have on a typical day when you are drinking?: 1 or 2 3. How often do you have six or more drinks on one occasion?: Never Total Score: 1 Score Reviewed/Action Taken: Yes JERI-7 AMB Questionnaire JERI-7 Date JERI - 7 assessed: 10/14/24 Feeling nervous, anxious, or on edge: 0 = Not at all Not being able to stop or control worryin = Not at all Worrying too much about different things: 0 = Not at all Trouble relaxin = Not at all Being so restless that it is hard to sit still: 0 = Not at all Becoming easily annoyed or irritable: 0 = Not at all Feeling afraid as if something awful might happen: 0 = Not at all Total JERI-7 score (0-4 normal; 5-9 mild; 10-14 moderate; 15-21 severe): 0 Source: Developed by Drs. Prasanth Hunter, Dorota Dumas, Matty Prabhakar and colleagues, with an educational ca from [employer]. JERI-7 Assessment Billing JERI-7 Assessment Tool: JERI-7 Assessment 77454 Review of Systems Const Denies body aches, Denies fatigue, Denies fever(s), Denies headache(s) and Denies weakness Eyes Details: Currently sees Dr. Corbin Denies change in vision ENT Reports Normal hearing present, Denies dizziness, Denies headache(s), Denies nasal congestion, Denies nasal discharge and Denies sore throat Card Denies chest pain, Denies lightheadedness, Denies palpitations and Denies dyspnea Resp Denies chest congestion, Denies cough, Denies dyspnea and Denies wheezing GI Denies abdominal pain, Denies change in bowel habits and Denies heartburn Denies urinary frequency, Denies dysuria and Denies urinary urgency Musc Reports no additional complaints Skin/Breast Denies breast mass, Denies lesions and Denies rash Neuro Reports Normal hearing present, Denies dizziness, Denies headache(s), Denies Sensory deficit (Neuro) and Denies weakness Psych Reports no additional complaints Endo Denies fatigue, Denies polydipsia, Denies polyuria and Denies palpitations Rudi/Lymph Denies easy bruising Aller/Immun Denies seasonal rhinorrhea and Denies wheezing Physical exam (Primary Care) Vital Signs: Last Vital Signs Temp 98.1 F 10/14/24 13:28 Pulse 79 10/14/24 13:28 Resp 16 10/14/24 13:28 BP 118/90 H 10/14/24 13:28 Pulse Ox 98 10/14/24 13:28 Oxygen Delivery Method Room Air 10/14/24 13:28 BMI result Body Mass Index 24.9 Tobacco/Smoking Status: Tobacco use Status Tobacco use date assessed 10/14/24 10/14/24 13:30 Patient Tobacco Use Status Never used Tobacco 10/14/24 13:30 e-Cigarette/Vaping Use Never Used 10/14/24 13:30 PHQ-9: PHQ-9 Score PHQ-9: Total score 0 10/14/24 13:54 Depression Screening Interpretation: Negative Thrive Assessment: Date of Thrive Assessment Date Thrive assessed 04/02/24 10/14/24 13:30 Currently or been in a relationship where the following occur: No concerns reported Advance Care Planning discussion: Completed/Scanned Date of discussion: 10/14/24 Who was present: patient Forms completed: Health Care Proxy and MOLST Time spent: 16-45 minutes Actual minutes spent: 2 Const General: cooperative, no acute distress and alert Orientation/consciousness: patient oriented x3 HENMT Head: Yes normal to inspection Ears: external ears normal, TM's normal bilaterally and EAC's normal General nose exam: Normal external nose present and No nasal discharge present Face and sinus: Yes face symmetric Mouth: Normal oral and palatal mucosa present, oropharynx normal and moist mucous membranes Eyes Conjunctivae: conjunctivae normal Sclerae: sclerae normal Pupils: Equal, round and reactive pupils present EOM: EOMs intact bilaterally Neck Neck: Yes full ROM and Yes no lymphadenopathy Carotids: normal carotid upstroke Chest Chest palpation & inspection: normal inspection of the chest Breast/axilla inspection: normal inspection of the breasts Breast/axilla palpation: normal palpation of the breasts Resp Effort & Inspection: normal respiratory effort and able to speak in complete sentences Auscultation: clear to auscultation bilaterally Cardio Jugular venous distension: no JVD Rate: regular rate Rhythm: regular rhythm Heart sounds: S1 normal heart sound present and S2 normal heart sound present GI Inspection: Yes normal to inspection Palpation (GI): Soft to palpation Auscultation: normal bowel sounds General: Yes no CVA tenderness Back/Spine/Pelvis Other: mild kyphosis Back: no CVA tenderness Skin Rashes: rashes noted (face) Neuro General: patient oriented x3, gait normal, moves all extremities, no focal motor deficits and CN's II-XI intact bilaterally Cranial nerves: Yes Equal, round and reactive pupils present and Yes Normal hearing present Cognition (Neuro): normal cognition Gait exam (Neuro): Normal gait present Motor exam (neuro): 5/5 motor strength present throughout Sensory Exam: No Sensory deficit (Neuro) Extrem Other: Unable to hyperextend left arm across back General: Yes normal to inspection, Yes full ROM, Yes no pedal edema and Yes normal gait Psych Affect: normal affect Results Reviewed Results Reviewed: Laboratory Tests 07/29/24 07:49 Hgb 15.3 Hct 44.7 Name: Cesilia Jhaveri Age/Sex: 74/F : 1950 Unit#: [id number] Attend Dr: Nancy Calle MD Re07/29/24 Status: DEP REF Location: [facility] Disch: SPEC : [id number] AMBREEN: 07/29/24 STATUS: COMP REQ : [id number] RECD: 07/29/24-[address]: Nancy Calle MD COMP: 07/29/24-1057 ENTERED: 07/29/[address] [facility] [address]: ORDERED: Met Prof Fast, AST, ALT, Lipid Panel, Vitamin D 25-OH Test Result Flag Reference Sodium 143 135-145 mmol/L Potassium 3.4 3.3-5.1 mmol/L CL 102 96-108 mmol/L CO2 34 H 22-29 mmol/L Gap 10 L 12-20 BUN 16 9-16 mg/dL Creat 0.57 0.5-1.4 mg/dL eGFR > 60 Chronic Kidney Disease: Estimated GFR < 60 mL/min/1.73m2 Severe Kidney Disease: Estimated GFR < 15 mL/min/1.73m2 FBS 100 H 60-99 mg/dL A fasting glucose from 100-125 mg/dl is considered impaired (pre-diabetes). CA 9.4 8.4-10.2 mg/dL AST (GOT) 30 5-31 U/L ALT (GPT) 43 H 0-31 U/L Triglyceride 112 <150 mg/dL Desirable Triglyceride: less than 150 mg/dL Borderline High Triglyceride 150-199 mg/dL High Triglyceride: 200-499 mg/dL Very High Triglyceride: greater than or equal to 5OO mg/dL Cholesterol 217 H <200 mg/dL Desirable Cholesterol: less than 200 mg/dL Borderline High Cholesterol: 200-239 mg/dL High Cholesterol: greater than 239 mg/dL LDL Calculated 120 H <100 mg/dL Desirable LDL: less than 100 mg/dL Near Optimal/Above Optimal LDL: 110-129 mg/dL Borderline High LDL: 130-159 mg/dL High LDL: 160-189 mg/dL Very High LDL: greater than or equal to 190 mg/dL HDL 75 >40 mg/dL Desirable HDL: greater than 40 mg/dL Note: This HDL assay may give artificially low results in patients with liver disease. Vitamin D 25-OH 56.6 >30 ng/mL Health Based Reference Values* < 20 ng/mL Deficient 20-30 ng/mL Insufficient > 30 ng/mL Sufficient - Labs: Mildly elevated liver enzymes, borderline hyperglycemia, elevated triglycerides and cholesterol. - Imaging: Mammogram showed developing calcification in the left breast, bone density showed thinning in the left hip, femur, and lower back. Coding Level of Care Code Est Pt Prev Care >65y(49105) Diagnoses Annual visit for general adult medical examination with abnormal findings Z00.01 Rash of face R21 Osteopenia of multiple sites M85.89 Calcification of left breast R92.1 Essential hypertension I10 Advance directive discussed with patient Z71.89 Additional Codes JERI-7 Assessment Billing - JERI-7 Assessment Tool: JERI-7 Assessment 79356 ([id number]) PHQ-9 - 80293 - PHQ-9 Billing: Yes ([id number]) Vital Signs *Quality* - Advance Care Planning discussion: Completed/Scanned ([id number]) Vital Signs *Quality* - Time spent: 16-45 minutes ([id number]) Assessment & Plan Assessment & Plan (1) Annual visit for general adult medical examination with abnormal findings: Code(s): Z00.01 - Encounter for general adult medical examination with abnormal findings (2) Rash of face: Code(s): R21 - Rash and other nonspecific skin eruption (3) Osteopenia of multiple sites: Code(s): M85.89 - Other specified disorders of bone density and structure, multiple sites Category: Medical (4) Calcification of left breast: Code(s): R92.1 - Mammographic calcification found on diagnostic imaging of breast Category: Medical (5) Essential hypertension: Code(s): I10 - Essential (primary) hypertension Category: Medical (6) Advance directive discussed with patient: Code(s): Z71.89 - Other specified counseling Plan: Initiated the conversation about Advanced Directives. Advanced Directives help patients prepare for current and future decisions about their medical treatment and place of care. Discussed with patient that it is a process where a patients current condition and prognosis are reviewed, their wishes for information regarding their illness are elicited, and likely medical dilemmas are presented and options discussed. Health care proxy and MOLST form completed today. These forms can be amended as needed, reviewed yearly and make changes as needed Plan Patient was informed and verbally consented to the use of an ambient scribe for clinic note documentation during this visit. 1. Essential (primary) hypertension I10 The patient's hypertension is stable with hydrochlorothiazide 12.5 mg daily. No medication changes are needed. 2. Other specified disorders of bone density and structure, unspecified site M85.80 Osteopenia management includes vitamin D supplementation and increased weight-bearing exercises. 3. Dense breasts, unspecified R92.30 Dense breast tissue requires further evaluation with targeted ultrasound and magnification views due to calcification in the left breast. 4. Abnormal levels of other serum enzymes R74.8 Elevated liver enzymes are addressed with dietary changes to reduce cholesterol and increased physical activity. 5. Calculus of kidney N20.[address] scan is planned to evaluate the kidney stone's status and guide management. During the visit, we discussed the patient's hypertension management, which remains stable with current medication. We reviewed the recent mammogram findings, noting the need for additional imaging due to calcification in the left breast. The patient was advised on dietary changes to address elevated liver enzymes and hyperlipidemia. We also planned a CT scan to evaluate the kidney stone. Preventative care measures, including vaccinations and screenings, were emphasized. Referral to dermatology ordered for evaluation facial rash Orders: Orders XR DEXA axial skeleton 10/14/24 M85.89 - Other specified disorders of bone density and structure, multiple sites, Z78.0 - Asymptomatic menopausal state MM tomosynthesis added views L 10/14/24 R92.1 - Mammographic calcification found on diagnostic imaging of breast, Z80.3 - Family history of malignant neoplasm of breast US breast LT limited 10/14/24 R92.1 - Mammographic calcification found on diagnostic imaging of breast, Z80.3 - Family history of malignant neoplasm of breast Referrals Dermatology Referral R21 - Rash and other nonspecific skin eruption
--- OUTSIDE RECORDS SUMMARY | 2024-10-14 14:40 | XMS_ITS | Patient Health Record ---
Author Organization [facility] Address [address] [place] [address] Care Team Providers Care Strategy Lead Name Role Phone Alva VELOZ, Nancy Primary Care Provider Prasanth Florence [phone] Allergies Allergen (clinical drug ingredient) Drug/Non Drug [...] Problem Status W/U Status Risk Notes Problem 94750122 Rectal bleeding (K62.5) Active confirmed Problem 055627072 History of adenomatous polyp of colon (Z86.010) Active confirmed Problem 703232204 Family history of colon cancer (Z80.0) Active confirmed Problem 56560787 Ischemic colitis (K55.9) Active confirmed Problem 178868129 Left lower quadrant abdominal pain (R10.32) Active confirmed Plan Of Treatment Future Test Test Name Order Date COLONOSCOPY 06/25/2020 Insurance Providers Payer Name Payer Address Payer Phone Subscriber Number Group Number Insured Name Patient Relationship to Insured Coverage Start Date Coverage End Date [facility] [address] [facility] [place] [phone] [id number] IVAN BOLDEN Self - patient is the insured Medical (General) History Medical History History ICD Code Kidney stones Osteoporosis Colonoscopies with Dr. Luis Manuel nazario with tubular adenomas and hyperplastic polyps removed-most recent was 02/2020 Denies [place],DM,CVA,Lung disease,renal dise ase Ischemic colitis--Colonoscop y in [...]
== END 2024-10-14 14:25 | disposition home or self-care (01) ==
LOC: HO.HMCC 13:18
PROVIDERS: PCP Internal Medicine; Visit Provider Internal Medicine
DX: Z00.00 Encounter for general adult medical examination without abnormal findings (principal); R21 Rash and other nonspecific skin eruption; M85.89 Other specified disorders of bone density and structure, multiple sites; R92.1 Mammographic calcification found on diagnostic imaging of breast; I10 Essential (primary) hypertension; Z71.89 Other specified counseling

== ENCOUNTER → 2024-10-14 13:17 | Outpatient (BNVA) | payer MEDICARE, SELFPAY | PROVIDERS: PCP Internal Medicine; Visit Provider Internal Medicine | DX: Z00.01 Encounter for general adult medical examination with abnormal findings (principal); I10 Essential (primary) hypertension; R21 Rash and other nonspecific skin eruption; M85.89 Other specified disorders of bone density and structure, multiple sites; R92.1 Mammographic calcification found on diagnostic imaging of breast; R92.30 Dense breasts, unspecified; R74.8 Abnormal levels of other serum enzymes; N20.0 Calculus of kidney; Z71.89 Other specified counseling; Z79.899 Other long term (current) drug therapy | CPT/HCPCS: 96127; 99397 ==

== ENCOUNTER 2024-11-12 13:17 | Outpatient (REF) | payer MEDICARE, SELFPAY ==
--- NOTE | ~2024-11-12 | MM_ITS ---
EXAMINATION(S): MM DIAGNOSTIC DIGITAL BREAST TOMOSYNTHESIS, LEFT CLINICAL INFORMATION: Callback from screening for left breast calcifications located in the posterior depth COMPARISON: Comparison made to multiple prior, most recent October 10, 2024, and most remote October 04, 2021. TECHNIQUE: Digital breast tomosynthesis is performed in full field ML 90 degrees along with computer-aided detection (CAD). Synthesized 2D images are generated from the tomosynthesis. Magnified spot compression views were obtained. FINDINGS: BREAST COMPOSITION: The breasts are heterogeneously dense, which may obscure small masses (ACR BI-RADS breast composition Category c). LEFT BREAST: Grouped coarse calcifications are noted in the upper outer quadrant at about 7.5 cm from the nipple are better seen on today's spot magnified compression views. MM/MM tomosynthesis added views L IMPRESSION: LEFT BREAST: Grouped calcifications in the upper outer quadrant posterior depth. Probably benign. A 6-month follow-up left breast mammogram is recommended. ASSESSMENT: BI-RADS 3 - Probably benign finding(s) - 6 month follow-up suggested RECOMMENDATION: 6 Month F/U Results were provided to the patient at time of visit by the technologist. This patient's information was entered into a reminder system with a target due date for their next mammogram. Electronically signed by: Loan Chin MD 11/12/2024 02:46 PM EDT
--- OUTSIDE RECORDS SUMMARY | 2024-11-12 16:19 | XMS_ITS | Patient Health Record ---
Author Organization [facility] Address [address] [place] [address] Care Team Providers Care Hamper Maker Name Role Phone Alva VELOZ, Nancy Primary Care Provider Prasanth Florence [phone] Allergies Allergen (clinical drug ingredient) Drug/Non Drug [...] Problem Status W/U Status Risk Notes Problem 24034696 Rectal bleeding (K62.5) Active confirmed Problem 346522212 History of adenomatous polyp of colon (Z86.010) Active confirmed Problem 352780649 Family history of colon cancer (Z80.0) Active confirmed Problem 42579712 Ischemic colitis (K55.9) Active confirmed Problem 706216349 Left lower quadrant abdominal pain (R10.32) Active confirmed Plan Of Treatment Future Test Test Name Order Date COLONOSCOPY 06/25/2020 Insurance Providers Payer Name Payer Address Payer Phone Subscriber Number Group Number Insured Name Patient Relationship to Insured Coverage Start Date Coverage End Date [facility] [address] [facility] [place] [phone] [id number] IVAN BOLDEN Self - patient is the insured Medical (General) History Medical History History ICD Code Kidney stones Osteoporosis Colonoscopies with Dr. Luis Manuel nazario with tubular adenomas and hyperplastic polyps removed-most recent was 02/2020 Denies [place],DM,CVA,Lung disease,renal dise ase Ischemic colitis--Colonoscop y in [...]
== END 2024-11-12 13:18 | disposition home or self-care (01) ==
LOC: HO.MAMMO 13:17
PROVIDERS: PCP Internal Medicine; Visit Provider Internal Medicine
DX: R92.1 Mammographic calcification found on diagnostic imaging of breast (principal)
CPT/HCPCS: 77061; 77065

== ENCOUNTER → 2024-11-12 13:30 | Outpatient (BNV) | payer MEDICARE, SELFPAY | PROVIDERS: PCP Internal Medicine; Visit Provider Radiology Body Imaging | DX: R92.1 Mammographic calcification found on diagnostic imaging of breast (principal) | CPT/HCPCS: 77065; G0279 ==

== ENCOUNTER 2024-12-19 08:31 | Outpatient (REF) | payer MEDICARE, SELFPAY ==
--- NOTE | ~2024-12-19 | MM_ITS ---
STUDY: DUAL ENERGY X-RAY ABSORPTIOMETRY / DXA REASON FOR EXAM: Female, 74 years old M85.89 - Other specified disorders of bone density and structure, multip... TECHNIQUE: Bone Mineral Density (BMD) measurements of the lumbar spine and left hip were obtained using [employer] COMPARISON: October 06, 2022 FINDINGS: L1-L4 BMD: 0.998 g/cm2 L1-L4 T score: -1.5. This corresponds to osteopenia. This represents a 5.1* % increase in bone density compared with prior exam from October 06, 2022. Left femoral neck BMD: 0.736 g/cm2 Left femoral neck T score: -2.2. This corresponds to osteopenia. Left total hip BMD: 0.761 g/cm2 Left total hip T score: -2.0. This corresponds to osteopenia. This represents a -1.8 % decrease in bone density compared with prior exam from October 06, 2022. * - Indicates a statistically significant change. FRAX score: 10 year risk of major osteoporotic fracture 13.8%, 10 year risk of hip fracture 3.8% MM/XR DEXA axial skeleton IMPRESSION: Osteopenia Reference Information: The T-score is the number of standard deviations above or below the standard which is normal for young adults at their peak bone mineral density. The World Health Organization (WHO) interprets the T-scores as follows: At or above -1 SD Normal bone density Between -1 and -2.5 SD Osteopenia At or below -2.5 SD Osteoporosis Electronically signed by: Loan Chin MD 12/19/2024 09:04 AM EDT
--- OUTSIDE RECORDS SUMMARY | 2024-12-19 09:20 | XMS_ITS | Patient Health Record ---
Author Organization [facility] Address [address] [place] [address] Care Team Providers Care Block Piler Name Role Phone Alva VELOZ, Nancy Primary Care Provider Prasanth Florence [phone] Allergies Allergen (clinical drug ingredient) Drug/Non Drug [...] Every 4-6 hoirs as needed for abdominal discomfort; Duration: 30 days 03/05/2022 Active Vitamin D Active [...] Problem Status W/U Status Risk Notes Problem Rectal bleeding (03113791) Rectal bleeding (K62.5) Active confirmed Problem History of adenomatous polyp of colon (007259896) History of adenomatous polyp of colon (Z86.010) Active confirmed Problem Family History of Cancer of Colon (Situation) (028566709) Family history of colon cancer (Z80.0) Active confirmed Problem Ischemic colitis (52601613) Ischemic colitis (K55.9) Active confirmed Problem Left lower quadrant pain (819064731) Left lower quadrant abdominal pain (R10.32) Active confirmed Plan Of Treatment Future Test Test Name Order Date COLONOSCOPY 06/25/2020 Insurance Providers Payer Name Payer Address Payer Phone Subscriber Number Group Number Insured Name Patient Relationship to Insured Coverage Start Date Coverage End Date [facility] [address] [place] [phone] [id number] [id number] BRYSON Self - patient is the insured Medical (General) History Medical History History ICD Code Kidney stones Osteoporosis Colonoscopies with Dr. Luis Manuel nazario with tubular adenomas and hyperplastic polyps removed-most recent was 02/2020 Denies [place],DM,CVA,Lung disease,renal dise ase Ischemic colitis--Colonoscop y in [...]
== END 2024-12-19 08:32 | disposition home or self-care (01) ==
LOC: HO.MAMMO 08:31
PROVIDERS: PCP Internal Medicine; Visit Provider Internal Medicine
DX: Z13.820 Encounter for screening for osteoporosis (principal); Z78.0 Asymptomatic menopausal state; M85.89 Other specified disorders of bone density and structure, multiple sites
CPT/HCPCS: 77080

== ENCOUNTER → 2024-12-19 08:45 | Outpatient (BNV) | payer MEDICARE, SELFPAY | PROVIDERS: PCP Internal Medicine; Visit Provider Radiology Body Imaging | DX: E28.39 Other primary ovarian failure (principal) | CPT/HCPCS: 77080 ==